=== PATIENT | female | born 1945 | race Caucasian/White ===

== ENCOUNTER → 2017-04-27 | Outpatient (CLI) | payer MEDICARE ==
[~2017-04-27] MED LIST: ACYCLOVIR800 MG PO; ALPH-E400 IU PO; ATIVAN ORAL C2 MG/ML PO; ENALAPRIL10 MG PO; GLYBURIDE5 MG PO; HYDROCODONE BIT1 T11 PO; METFORMIN500 MG PO; VITAMIN D1000 IU PO; ZOCOR40 MG PO
== END | disposition home or self-care (01) ==
LOC: MAMMO 10:51
DX: Z12.31 Encounter for screening mammogram for malignant neoplasm of breast (principal)

== ENCOUNTER → 2017-06-16 | Outpatient (CLI) | payer MEDICARE | END | disposition home or self-care (01) | LOC: RAD 11:58 | DX: M17.0 Bilateral primary osteoarthritis of knee (principal) ==

== ENCOUNTER → 2017-12-24 | Outpatient (CLI) | payer MEDICARE | END | disposition home or self-care (01) | LOC: US 15:20 | DX: M79.604 Pain in right leg (principal); M79.89 Other specified soft tissue disorders ==

== ENCOUNTER → 2019-01-06 | Outpatient (CLI) | payer MEDICARE | END | disposition home or self-care (01) | LOC: RAD 10:41 | DX: Z13.820 Encounter for screening for osteoporosis (principal); Z78.0 Asymptomatic menopausal state ==

== ENCOUNTER → 2019-03-14 | Outpatient (CLI) | payer MEDICARE | END | disposition home or self-care (01) | LOC: RAD 08:23 | DX: R07.81 Pleurodynia (principal); R05 Cough ==

== ENCOUNTER 2019-03-24 14:48 | Emergency (ER) | payer MEDICARE ==
[~2019-03-24] VITALS: Ht 154.9 cm; Wt 84.4 kg
--- NOTE | ~2019-03-24 | EKG ---
[place], [place] ELECTROCARDIOGRAM REPORT NAME: HERIBERTO SMITH UNIT #: [id number] ROOM: DOCTOR: EPIPHANY DRAFT REPORT BIRTHDATE: [birth year] [facility] Test Date: 2019-03-24 Test Time: 15:15:52 Pat Name: HERIBERTO SMITH Department: Room: Gender: F Grill Attendant: : 1945 Requested By: HUNTER JANG Order Number: [id number] Reading MD: Kenna Ortiz Measurements Intervals [place] Rate: 97 P: 67 CA: 133 QRS: 16 QRSD: 89 T: 30 QT: 352 QTc: 447 Interpretive Statements Sinus rhythm Probable left atrial enlargement Baseline wander in lead(s) V3 No previous ECG available for comparison Electronically Signed On 03-27-2019 12:38:42 PDT by Kenna Ortiz CM:EKGRPT:ELECTROCARDIOGRAM REPORT [id number] HUNTER JANG EPIPHANY DRAFT REPORT HUNTER JANG
[2019-03-24 15:30] LABS: BASO % 0.1 % (0.0-1.0); EOS % 0.4 % (1.0-4.0); HEMOGLOBIN 13.4 g/dl (12.0-16.0); LYMPH # 1.4 10*3/uL (1.3-4.4); LYMPH % 16.9 % (27.0-41.0); MEAN CELL VOLUME 90.5 fl (81.0-99.0); MEAN CORPUSCULAR HGB 31.1 pg (27.0-31.0); MEAN CORPUSCULAR HGB CONC 34.4 g/dl (33.0-37.0); MEAN PLATELET VOLUME 9.2 fl (9.6-12.3); MONO # 0.7 10*3/uL (0.1-1.0); MONO % 8.2 % (3.0-9.0); NEUT # 6.1 10*3/uL (2.3-7.9); PLATELET COUNT AUTOMATED 374 10*3/uL (130-400); RED BLOOD COUNT 4.31 10*6/uL (4.10-5.10); RED CELL DISTRI WIDTH 12.6 % (0-14.5); WHITE BLOOD COUNT 8.2 10*3/uL (4.8-10.8)
[2019-03-24 15:47] LABS: ALKALINE PHOSPHATASE 72 U/L (45-117); BUN 7 mg/dl (7-24); CHLORIDE 104 mmol/L (98-107); CREATININE 0.82 mg/dL (0.55-1.02); POTASSIUM 4.3 mmol/L (3.5-5.1); SGOT/AST 25 IU/L (3-35); SGPT/ALT 21 U/L (12-78); SODIUM 138 mmol/L (136-145); TOTAL PROTEIN 7.8 gm/dL (6.4-8.2)
[2019-03-24 15:49] LABS: TROPONIN I < 0.015 ng/ml (<0.045)
[2019-03-24 16:14] LABS: INTERNATIONAL NORM RATIO 0.9 (2.0-3.5)
== END 2019-03-24 17:43 | disposition left against medical advice (07) ==
LOC: ED 14:48
PROVIDERS: Nurse Practitioner Family
DX: S01.81XA Laceration without foreign body of other part of head, initial encounter (principal); R55 Syncope and collapse; Z79.899 Other long term (current) drug therapy; Z79.84 Long term (current) use of oral hypoglycemic drugs; W19.XXXA Unspecified fall, initial encounter; Y93.89 Activity, other specified; Y92.091 Bathroom in other non-institutional residence as the place of occurrence of the external cause; Y99.8 Other external cause status

== ENCOUNTER → 2019-05-30 | Outpatient (CLI) | payer MEDICARE | END | disposition home or self-care (01) | LOC: CARD 10:00 | DX: R42 Dizziness and giddiness (principal); R55 Syncope and collapse ==

== ENCOUNTER → 2019-06-17 | Outpatient (CLI) | payer MEDICARE | END | disposition home or self-care (01) | LOC: US 13:00 | DX: I65.22 Occlusion and stenosis of left carotid artery (principal); E04.1 Nontoxic single thyroid nodule; R55 Syncope and collapse; R42 Dizziness and giddiness; I10 Essential (primary) hypertension; E11.9 Type 2 diabetes mellitus without complications ==

== ENCOUNTER 2019-10-07 17:01 | Inpatient (IN) | payer MEDICARE ==
[~2019-10-07] VITALS: Ht 154.9 cm; Wt 81.0 kg
[2019-10-07 17:24] VITALS: BP 114/74
[2019-10-07 18:10] LABS: BASO % 0.2 % (0.0-1.0); EOS % 0.1 % (1.0-4.0); HEMATOCRIT 44.3 % (37.0-47.0); HEMOGLOBIN 14.9 g/dl (12.0-16.0); LYMPH # 1.1 10*3/uL (1.3-4.4); LYMPH % 10.3 % (27.0-41.0); MEAN CELL VOLUME 88.8 fl (81.0-99.0); MEAN CORPUSCULAR HGB 29.9 pg (27.0-31.0); MEAN CORPUSCULAR HGB CONC 33.6 g/dl (33.0-37.0); NEUT # 8.1 10*3/uL (2.3-7.9); PLATELET COUNT AUTOMATED 388 10*3/uL (130-400); RED BLOOD COUNT 4.99 10*6/uL (4.10-5.10); RED CELL DISTRI WIDTH 12.5 % (0-14.5); WHITE BLOOD COUNT 10.3 10*3/uL (4.8-10.8)
[2019-10-07 18:19] LABS: BILIRUBIN NEGATIVE (NEGATIVE); BLOOD 2+ (NEGATIVE); CLARITY SL CLOUDY (CLEAR); COLOR YELLOW (YELLOW); GLUCOSE NEGATIVE (NEGATIVE); KETONE TRACE (NEGATIVE); LEUKO ESTERASE NEGATIVE (NEGATIVE); NITRITE NEGATIVE (NEGATIVE); PH 5.5 (5.0-9.0); SPECIFIC GRAVITY >= 1.030 (1.005-1.030); UROBILINOGEN 0.2 E.U./dl (0.2-1.0)
[2019-10-07 18:21] VITALS: BP 134/59
[2019-10-07 18:21] LABS: ACT PARTIAL THROMBO TIME 27.9 SECONDS (20.0-32.1); INTERNATIONAL NORM RATIO 0.9 (2.0-3.5)
[2019-10-07 18:26] LABS: BACTERIA 4+; MUCOUS 1+; RBC 0-2 rbc/hpf (0-2); WBC 41-50 wbc/hpf (0-5)
[2019-10-07 18:27] LABS: ALBUMIN 3.6 gm/dl (3.1-4.5); ALKALINE PHOSPHATASE 62 U/L (45-117); BUN 14 mg/dl (7-24); CHLORIDE 99 mmol/L (98-107); CREATININE 1.03 mg/dL (0.55-1.02); POTASSIUM 4.4 mmol/L (3.5-5.1); SGOT/AST 53 IU/L (3-35); SGPT/ALT 26 U/L (12-78); SODIUM 135 mmol/L (136-145); TOTAL PROTEIN 8.1 gm/dL (6.4-8.2)
[2019-10-07 18:28] LABS: TROPONIN I < 0.015 ng/ml (<0.045)
--- NOTE | 2019-10-07 18:28 | NUR ---
ED DOC NOTIFIED OF CRITICAL LAB OF [facility] OF 2.6
[2019-10-07 18:38] LABS: CPK 1085 U/L (26-192)
[2019-10-07 20:00] VITALS: BP 137/78
[2019-10-07 20:16] VITALS: BP 131/68
--- NOTE | 2019-10-07 20:16 | NUR ---
A 74, admitted to 5E, under the services of MARC Resendez DO with a diagnosis of FALL. Chief complaint is FALL. Patient arrived via bed from ER. Monitor applied. Initial assessment completed. Vital signs taken and recorded. DR. STYLES notified of admission to 5E. Orders received. See assessment for past medical history, medications and allergies. Patient and/or family oriented to 5E. visitation policy reviewed. Clothing/patient valuable form completed. RUBIO SMITH RN
[2019-10-07] MEDS ORDERED: ATORVASTATIN CA20 M1 PO (20:39)
[2019-10-07] MEDS ORDERED: VITAMIN D5000 UNI1 PO (20:39)
[2019-10-07] MEDS ORDERED: LISINOPRIL10 M1 PO (20:40)
[2019-10-08] VITALS: BP 141/49
[2019-10-08 06:11] LABS: BASO % 0.2 % (0.0-1.0); EOS # 0.1 10*3/uL (0.0-0.4); EOS % 0.9 % (1.0-4.0); HEMATOCRIT 42.1 % (37.0-47.0); HEMOGLOBIN 14.2 g/dl (12.0-16.0); LYMPH # 1.8 10*3/uL (1.3-4.4); LYMPH % 20.7 % (27.0-41.0); MEAN CELL VOLUME 89.2 fl (81.0-99.0); MEAN CORPUSCULAR HGB 30.1 pg (27.0-31.0); MEAN CORPUSCULAR HGB CONC 33.7 g/dl (33.0-37.0); MONO # 1.1 10*3/uL (0.1-1.0); MONO % 12.9 % (3.0-9.0); NEUT # 5.7 10*3/uL (2.3-7.9); NEUT % 64.7 % (47.0-73.0); PLATELET COUNT AUTOMATED 363 10*3/uL (130-400); RED BLOOD COUNT 4.72 10*6/uL (4.10-5.10); RED CELL DISTRI WIDTH 12.8 % (0-14.5); WHITE BLOOD COUNT 8.8 10*3/uL (4.8-10.8)
[2019-10-08 06:26] LABS: ALKALINE PHOSPHATASE 55 U/L (45-117); BUN 15 mg/dl (7-24); CHLORIDE 105 mmol/L (98-107); CREATININE 0.73 mg/dL (0.55-1.02); PHOSPHOROUS 3.3 mg/dL (2.5-4.9); POTASSIUM 3.9 mmol/L (3.5-5.1); SGOT/AST 40 IU/L (3-35); SGPT/ALT 21 U/L (12-78); SODIUM 138 mmol/L (136-145); TOTAL PROTEIN 7.1 gm/dL (6.4-8.2)
[2019-10-08 06:27] LABS: FREE T4 1.37 ng/dl (0.76-1.46)
[2019-10-08 06:32] LABS: CPK 589 U/L (26-192)
[2019-10-08 07:41] LABS: VITAMIN D, 25-HYDROXY 25.6 ng/mL (30-100)
[2019-10-08 08:00] VITALS: BP 137/53
[2019-10-08 12:00] VITALS: BP 142/58
[2019-10-08 16:00] VITALS: BP 140/52
--- NOTE | 2019-10-08 18:33 | NUR ---
CURRENTLY AWAITING FAMILY TO GET IN FROM [place] TO TRANSPORT PATIENT. FAMILY MAY NOT GET HERE UNTIL TOMORROW. DR GUILLEN AND BLOCK SAWYER AWARE.
[2019-10-08 20:00] VITALS: BP 122/42
--- NOTE | 2019-10-08 20:35 | NUR ---
DR HACKETT IN TO SEE PT
[2019-10-09] VITALS: BP 131/54
[2019-10-09 08:00] VITALS: BP 130/50
--- NOTE | 2019-10-09 10:07 | NUR ---
Discharge instructions reviewed with patient/family. Patient receptive and verbalizes understanding. Follow-up care arranged. Written instructions given to patient/family. IV REMOVED. CARLOS LYNCH
== END 2019-10-09 10:06 | disposition home or self-care (01) | DRG 558 ==
LOC: ED 17:01 → EDHOLD 18:59 → 5E 19:40
PROVIDERS: Emergency Medicine; Internal Medicine; ADMIT Emergency Medicine
DX: M62.82 Rhabdomyolysis (principal); N30.01 Acute cystitis with hematuria; E87.2 Acidosis; E87.1 Hypo-osmolality and hyponatremia; R26.2 Difficulty in walking, not elsewhere classified; R00.0 Tachycardia, unspecified; E11.65 Type 2 diabetes mellitus with hyperglycemia; I10 Essential (primary) hypertension; E78.5 Hyperlipidemia, unspecified; G89.29 Other chronic pain; M54.9 Dorsalgia, unspecified; R74.0 Nonspecific elevation of levels of transaminase and lactic acid dehydrogenase [LDH]; E83.41 Hypermagnesemia; Z96.1 Presence of intraocular lens; E86.0 Dehydration; W18.30XA Fall on same level, unspecified, initial encounter; Y93.89 Activity, other specified; Y92.091 Bathroom in other non-institutional residence as the place of occurrence of the external cause; Y99.8 Other external cause status; Z98.49 Cataract extraction status, unspecified eye; Z79.899 Other long term (current) drug therapy

== ENCOUNTER 2019-10-10 16:17 | Inpatient (IN) | payer MEDICARE ==
[~2019-10-10] VITALS: Ht 154.9 cm; Wt 78.7 kg
[~2019-10-10 16:17] MED LIST changes: +ATORVASTATIN CA20 M1 PO; +LISINOPRIL10 M1 PO; +VITAMIN D5000 UNI1 PO
[2019-10-10 16:22] VITALS: BP 149/57
[2019-10-10 16:42] LABS: BASO % 0.2 % (0.0-1.0); EOS # 0.2 10*3/uL (0.0-0.4); EOS % 2.6 % (1.0-4.0); HEMATOCRIT 41.8 % (37.0-47.0); HEMOGLOBIN 13.9 g/dl (12.0-16.0); LYMPH # 1.5 10*3/uL (1.3-4.4); LYMPH % 18.7 % (27.0-41.0); MEAN CELL VOLUME 89.1 fl (81.0-99.0); MEAN CORPUSCULAR HGB 29.6 pg (27.0-31.0); MEAN CORPUSCULAR HGB CONC 33.3 g/dl (33.0-37.0); MONO # 0.7 10*3/uL (0.1-1.0); NEUT # 5.7 10*3/uL (2.3-7.9); NEUT % 69.6 % (47.0-73.0); PLATELET COUNT AUTOMATED 426 10*3/uL (130-400); RED BLOOD COUNT 4.69 10*6/uL (4.10-5.10); RED CELL DISTRI WIDTH 12.5 % (0-14.5); WHITE BLOOD COUNT 8.1 10*3/uL (4.8-10.8)
[2019-10-10 17:00] LABS: ALBUMIN 3.8 gm/dl (3.1-4.5); ALKALINE PHOSPHATASE 63 U/L (45-117); BUN 15 mg/dl (7-24); CHLORIDE 105 mmol/L (98-107); POTASSIUM 3.9 mmol/L (3.5-5.1); SGOT/AST 45 IU/L (3-35); SGPT/ALT 30 U/L (12-78); SODIUM 137 mmol/L (136-145); TOTAL PROTEIN 8.2 gm/dL (6.4-8.2)
[2019-10-10 19:01] VITALS: BP 150/60
[2019-10-10 19:06] VITALS: BP 150/60
[2019-10-10 19:50] VITALS: BP 123/50
--- NOTE | 2019-10-10 19:50 | NUR ---
Time: 1950 A 74 year old FEMALE admitted to 5E under services of KAREN COWART DO. Pt. arrived via bed from ER. Chief complaint: AMOKE INHALATION. PATRICIA ERNANDEZ
[2019-10-10 20:00] VITALS: BP 123/50
--- NOTE | 2019-10-10 21:34 | NUR ---
CALLED DR STYLES TO INFORM HER THAT THE PATIENT IS BECOMING AGGITATED AND MAKING MULTIPLE ATTEMPTS TO LEAVE. ORDERS RECIEVED.
--- NOTE | 2019-10-11 01:02 | NUR ---
PT ASLEEP IN BED AT THIS TIME. NO S/S OF DISTRESS NOTED. BED LOW, ALARM ON.
[2019-10-11 06:31] LABS: BASO % 0.6 % (0.0-1.0); EOS # 0.3 10*3/uL (0.0-0.4); HEMATOCRIT 36.1 % (37.0-47.0); LYMPH # 1.9 10*3/uL (1.3-4.4); LYMPH % 34.8 % (27.0-41.0); MEAN CELL VOLUME 88.7 fl (81.0-99.0); MEAN CORPUSCULAR HGB 29.5 pg (27.0-31.0); MEAN CORPUSCULAR HGB CONC 33.2 g/dl (33.0-37.0); MEAN PLATELET VOLUME 8.9 fl (9.6-12.3); MONO # 0.7 10*3/uL (0.1-1.0); NEUT # 2.4 10*3/uL (2.3-7.9); NEUT % 44.5 % (47.0-73.0); PLATELET COUNT AUTOMATED 368 10*3/uL (130-400); RED BLOOD COUNT 4.07 10*6/uL (4.10-5.10); RED CELL DISTRI WIDTH 12.5 % (0-14.5); WHITE BLOOD COUNT 5.3 10*3/uL (4.8-10.8)
[2019-10-11 06:47] LABS: BUN 12 mg/dl (7-24); CHLORIDE 106 mmol/L (98-107); CREATININE 0.68 mg/dL (0.55-1.02); PHOSPHOROUS 3.8 mg/dL (2.5-4.9); SODIUM 138 mmol/L (136-145)
[2019-10-11 08:00] VITALS: BP 146/80
--- NOTE | 2019-10-11 08:03 | NUR ---
PHYSICAL THERAPY Screen received as well as orders for PT will follow, thank you Connie Small PT
--- NOTE | 2019-10-11 08:17 | NUR ---
PT SETS BED ALARM OFF, CLOTHED IN STREET CLOTHES AND PUTTING TENNIS SHOES ON IN ORDER TO USE BATHROOM. PT ENCOURAGED TO PUT HOSPITAL GOWN ON. ASSESSMENT COMPLETE AT THIS TIME. PT ALERT AND COOPERATIVE. RESPIRATIONS EASY AND UNLABORED ON ROOM AIR. WILL ASSIST PT BACK TO BED AND ENCOURAGE HOSPITAL GOWN.
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
--- NOTE | 2019-10-11 12:35 | NUR ---
Occupational Therapy evaluation completed on 5 with full eval to follow. Precautions include unsteady in standing at times, impaired cognition;memory,insight,judgement,low complexity level 59138, left knee pain, low back pain. Recommend OT per POC and home w/ 24 hr supervision and assist w/ medications and IADLs. Thank you. Amy Pierce OTR/L
--- NOTE | 2019-10-11 14:30 | NUR ---
PT SONS LEAVE AND PT BECOMES AGITATED AND ATTEMPTS TO FOLLOW SONS DOWN [place] AND ATTEMPTS TO LEAVE HOSPITAL. PT HAS STREET CLOTHES AND REFUSES TO PUT HOSPITAL GOWN ON AT THIS TIME. PT WALKS DOWN TO WAITING AREA AND ATTEMPTS TO PRESS BUTTONS TO OBTAIN ACCESSS TO ELEVATOR. THIS NURSE, NURSING DIGITAL MARKETING PROJECT MANAGER, AND PATIENT ATTENDANT ARE WITH PATIENT AT THIS TIME. SECURITY IS CALLED. PT IS ASSISTED BACK TO ROOM. PT IS ASSISTED INTO A HOSPITAL GOWN. BROWN BAND IS PLACED. PT STATES THAT SHE UNDERSTANDS WHY SHE HAS TO STAY HERE. PT TO BE MOVED CLOSER TO DESK WHEN ROOM IS CLEAN. WILL CONTINUE TO MONITOR. CALL LIGHT IN REACH OF PATIENT.
--- NOTE | 2019-10-11 14:44 | NUR ---
CONSULT CALLED TO THE JUSTA LIMA. STATES THAT SHE WILL SEE PATIENT ON THURSDAY. DR ANGUIANO MADE AWARE OF THIS.
--- NOTE | 2019-10-11 15:38 | NUR ---
PHYSICAL THERAPY Eval completed pt moderate complexity level recomend home with 24 hour care and f/u HH though pt has refused in the past. Pt refusing any placement and will likley not qualify for skilled therapy, spoke with CM at length and pt has U consult as well as competancy evalation ordered. Full report to follow PT to work on amb with cane, stair training, balance/safety. Connie Small PT
[2019-10-11 16:00] VITALS: BP 152/63
--- NOTE | 2019-10-11 16:00 | NUR ---
PT MOVED TO ROOM 523. PT AGREEABLE WITH STAFF AT THIS TIME. NO S/S OF DISTRESS NOTED. WILL CONTINUE TO MONITOR. PT WITHIN EYESIGHT AT THIS TIME.
--- NOTE | 2019-10-11 16:04 | NUR ---
Nursing screen received and occupational therapy referral received. Thank you. Amy Pierce OTR/L
--- NOTE | 2019-10-11 18:18 | NUR ---
PT SITTING IN ROOM, LOOKING OUT WINDOW. NO S/S OF DISTRESS. WILL MONITOR.
[2019-10-11 20:00] VITALS: BP 151/72
--- NOTE | 2019-10-11 21:01 | NUR ---
PATIENT AMBULATING IN HALLWAY WITH GOWN AND BROWN BAND OFF. PATIENT ESCORTED BACK TO ROOM AND BAND AND GOWN PUT BUT ON. PATIENT IN BED WITH BED ALARM ON. BED IN LOWEST POSITON, CALL VAHET IN REACH
[2019-10-12] VITALS: BP 102/88
--- NOTE | 2019-10-12 01:28 | NUR ---
24 HR chart check completed.
[2019-10-12 08:00] VITALS: BP 154/78
[2019-10-12 12:00] VITALS: BP 146/76
--- NOTE | 2019-10-12 12:54 | NUR ---
FAMILY IN PATIENTS ROOM AND STATES THAT THE PATIENT WANTS TO LEAVE NOW. I WENT IN TO INFORM THE FAMILY THAT THE DOCTOR WHO IS SUPPOSED TO SEE HER IS OUT TODAY DUE TO THE HOLIDAY AND WILL BE IN TOMORROW TO SEE THE PATIENT. PATIENT STATES "OK" AND THAT SHE WILL ORDER LUNCH AT THIS TIME.
--- NOTE | 2019-10-12 13:05 | NUR ---
PT ATTEMPTED TO LEAVE THE FLOOR. PT IS BROUGHT BACK INTO THE ROOM AND MADE COMFORTABLE. CURRENTLY WAITING FOR HER LUNCH. WILL CONTINUE TO MONITOR
--- NOTE | 2019-10-12 15:42 | NUR ---
PHYSICAL THERAPY Patient standing up in room with nurse present at time of arrival. Nurse informing SEPARATIONS SCIENTIST that patient attempted to leave unit earlier in day. Patient identified by name and . Patient provided consent for therapy session this date. Pt performed standing/seated B LE ther-ex, for strength, endurance and balance; standing marches, heel raises x 10 reps (AVIATION TECHNICAL SYSTEMS SPECIALIST provided for balance and safety) Seated: LAQs, hip ABD/ADD (OK[place]), marches x 15 reps. Cues and supervision for technique and progression of exercises. STS transfer x 10 reps from EOB without UE use completed in order to improve overall strength and balance to decrease fall risk. Pt ambulated without AD, HHAx1, over level surfaces-- incorporating 90 and 180 degree directional changes for ~150'x2. Patient demo no LOB this date, although benefits from cues for safety and increasing LE step height/length to decrease fall risk. Patient in room sitting EOB at session end with call light within reach. No voiced concerns. SEPARATIONS SCIENTIST informed nursing that patient was left in room unattended post therapy session. Mer Gurrola PTA.
[2019-10-12 16:00] VITALS: BP 140/82
--- NOTE | 2019-10-12 17:06 | NUR ---
Shift chart check completed.
--- NOTE | 2019-10-12 17:15 | NUR ---
PT SON JOSIE CALLED JUST TO GET INFORMATION ON HOW HIS MOTHER IS DOING, STATES HE WILL CALL BACK IN TOMORROW
--- NOTE | 2019-10-12 19:54 | NUR ---
PT IN BED RESTING AT THIS TIME. NO COMPLAINTS VOICED. RESPS ARE EASY AND NONLABORED. BEDSIDE GLUCOSE IS CHECKED FOR A RESULT OF 120. BED IS LOW WITH BED ALARM ON. WILL MONITOR FOR EFFECTIVNESS.
[2019-10-12 20:00] VITALS: BP 145/74
[2019-10-13] VITALS: BP 118/55
--- NOTE | 2019-10-13 01:13 | NUR ---
24 HR chart check completed.
--- NOTE | 2019-10-13 04:00 | NUR ---
PT TAKES OFF HER OWN BODY ALARM WHEN IN CHAIR AND WILL NOT STAY IN BED. HER GAIT IS STEADY AT THIS TIME.
[2019-10-13 06:40] LABS: BASO % 0.4 % (0.0-1.0); EOS # 0.3 10*3/uL (0.0-0.4); HEMATOCRIT 36.1 % (37.0-47.0); HEMOGLOBIN 12.3 g/dl (12.0-16.0); LYMPH # 1.6 10*3/uL (1.3-4.4); MEAN CORPUSCULAR HGB 29.6 pg (27.0-31.0); MEAN CORPUSCULAR HGB CONC 34.1 g/dl (33.0-37.0); MEAN PLATELET VOLUME 8.5 fl (9.6-12.3); MONO # 0.6 10*3/uL (0.1-1.0); MONO % 11.7 % (3.0-9.0); NEUT # 2.2 10*3/uL (2.3-7.9); NEUT % 47.6 % (47.0-73.0); PLATELET COUNT AUTOMATED 378 10*3/uL (130-400); RED BLOOD COUNT 4.15 10*6/uL (4.10-5.10); RED CELL DISTRI WIDTH 12.1 % (0-14.5); WHITE BLOOD COUNT 4.7 10*3/uL (4.8-10.8)
[2019-10-13 07:03] LABS: BUN 6 mg/dl (7-24); CHLORIDE 105 mmol/L (98-107); POTASSIUM 3.9 mmol/L (3.5-5.1); SODIUM 138 mmol/L (136-145)
--- NOTE | 2019-10-13 07:44 | NUR ---
Shift chart check completed.
--- NOTE | 2019-10-13 07:58 | NUR ---
pt sitting side of bed, dressed, putting on tennis shoes. reminded patient that she is not discharged and to not leave. she states "i know, i just want to have my things gathered up". pt steady on feet, bed alarm off at this time while patient sitting at side of bed putting shoes on. will continue to monitor. staff at nursing station aware patient is wearing purple shirt and to assist patient back to room if she wanders into lockwood. will continue to monitor patient for needs, place bed alarm on if needed.
[2019-10-13 08:00] VITALS: BP 146/82
--- NOTE | 2019-10-13 08:30 | NUR ---
BETH received email from patients son Jaime Bar that included patiets DPOA-HC. ELECTRICAL INSPECTOR printed the documents and placed them on the patients chart. -BETH Pierce
--- NOTE | 2019-10-13 08:33 | NUR ---
Pt was treated x 23 minutes with OT beginning with fxl mobility throughout bedroom & bathroom areas with supervision due to hx of balance issues. Pt transferred into & out of shower with supervision. Pt stood at sink for grooming after set up for approx 5 minutes. Ended session with retrieving items from low drawer with supervision. Call light within reach. Continue with OT POC. Kasandra REN
--- NOTE | 2019-10-13 10:31 | NUR ---
PHYSICAL THERAPY TREATMENT TIME: 10:00 AM - 10:21 AM 21 MINUTES TOTAL Patient presented to therapy in sitting in bedside chair with patient's brother visiting with her in the room. Patient has chair alarm on chair, but it is NOT attached to patient. Patient gives informed consent for treatment. Patient sit to stand out of bedside chair with SBA. Patient performed ambulation with no assistive device and CGA X 1 for 120' x 1 to stairwell. Patient ascended and descended x 12 steps with CGA X 1 WITH NO significant difficulty. Patient used hand rail on one side of steps both ascending and descending the steps / CGA X 1 on other side. Patient ambulated back to the room another 120' x 1 with CGA X 1 and no LOB or other difficulty. Patient does demonstrate some increased confusion. Patient was left in bedside chair with call light within reach, chair alarm tested and attached to patient and brother visitng with patient in the room. Patient was 1:1 with this DYE MAKER for 21 minutes total. DONOVAN NELSON DYE MAKER
--- NOTE | 2019-10-13 11:25 | NUR ---
CAFE AIDE spoke to Dr. Colón about the patient. CAFE AIDE reached out [facility], a cab would cost the patient $6.45. CAFE AIDE went to speak with the patient about transportation home. Patients brother is at bedside and stated he would take her home. CAFE AIDE spoke with ABDIRAHMAN Tuttle about patients brother transporting her home. -BETH Pierce
--- NOTE | 2019-10-13 11:32 | NUR ---
BETH received call from patients other son, David Bar [phone]. BETH provided him with the contact number for [facility]. BETH explained with patient not being home bound HHC would not be appropriate at this time. He understood. -BETH Pierce
--- NOTE | 2019-10-13 11:56 | NUR ---
IV REMOVED, DRESSING APPLIED.
--- NOTE | 2019-10-13 12:03 | NUR ---
Discharge instructions reviewed with patient/family. Patient receptive and verbalizes understanding. Follow-up care arranged. Written instructions given to patient/family. PT STATES UNDERSTANDING OF DISCHARGE INSTRUCTIONS, UNDERSTANDS NO CHANGE IN HOME MEDICATIONS AND UNDERSTANDS TO KEEP APPOITMENT WITH PRIMARY CARE PHYSICIAN. SPOKE TO DR. GUILLEN PRIOR TO DISCHARGING PATIENT AND HE STATED THAT MITESH LIMA SAW PATIENT AND BELIEVES PATIENT TO BE COMPETENT TO MAKE OWN DECISIONS AND PATIENT CAN BE DISCHARGED HOME. PATIENTS BROTHER AT BEDSIDE AND WILL TAKE PATIENT HOME, DISCHARGE VIA WHEELCHAIR. SHAUNNA CAGLE
--- NOTE | 2019-10-13 16:54 | NUR ---
OCCUPATIONAL THERAPY CO-SIGN I approve of the Occupational Therapy notes written above. GABRIELA FLOYD OTR/Daquan
--- NOTE | 2019-10-13 18:16 | NUR ---
PATIENTS SON CALLED IN AFTER PATIENT WAS DISCHARGED WITH CONCERNS WITH PATIENT GOING HOME ALONE. RESOURSE INFORMATION WAS GIVEN TO PATIENTS BROTHER WHO SON JOSIE SAID IS VERY FORGETFUL, CALLED CARE MANAGEMENT AND LEFT MESSAGE REQUESTING TO CALL PEDRO GALINDO TOMORROW WITH RESOURCE INFORMATION.
--- NOTE | 2019-10-14 08:00 | NUR ---
PHYSICAL THERAPY CO-SIGN I approve of the Physical Therapy notes written above. Connie Small PT
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
--- NOTE | 2019-10-14 15:08 | NUR ---
BETH reached out to the patient. No answer. Message was already left today. -BETH Pierce
== END 2019-10-13 12:03 | disposition home or self-care (01) | DRG 206 ==
LOC: ED 16:17 → 5E 17:53 → EDHOLD 17:53 → 5E 18:20
PROVIDERS: Emergency Medicine; Internal Medicine; Student in an Organized Health Care Education/Training Program; ADMIT Internal Medicine
DX: J70.5 Respiratory conditions due to smoke inhalation (principal); R68.89 Other general symptoms and signs; I10 Essential (primary) hypertension; Z66 Do not resuscitate; Z51.5 Encounter for palliative care; E78.5 Hyperlipidemia, unspecified; M54.9 Dorsalgia, unspecified; G89.29 Other chronic pain; E55.9 Vitamin D deficiency, unspecified; D72.819 Decreased white blood cell count, unspecified; R41.9 Unspecified symptoms and signs involving cognitive functions and awareness; E11.9 Type 2 diabetes mellitus without complications; Z96.1 Presence of intraocular lens; Z79.899 Other long term (current) drug therapy; Z98.49 Cataract extraction status, unspecified eye

== ENCOUNTER 2020-01-03 12:01 | Inpatient (IN) | payer OTHER ==
[~2020-01-03] VITALS: Ht 165.1 cm; Wt 74.9 kg
[2020-01-03 12:02] VITALS: BP 129/56
[2020-01-03 12:43] LABS: BASO % 0.2 % (0.0-1.0); EOS # 0.1 10*3/uL (0.0-0.4); EOS % 0.3 % (1.0-4.0); HEMATOCRIT 47.9 % (37.0-47.0); HEMOGLOBIN 15.8 g/dl (12.0-16.0); LYMPH # 0.7 10*3/uL (1.3-4.4); LYMPH % 4.1 % (27.0-41.0); MEAN CELL VOLUME 87.2 fl (81.0-99.0); MEAN CORPUSCULAR HGB 28.8 pg (27.0-31.0); MEAN PLATELET VOLUME 8.9 fl (9.6-12.3); MONO # 1.1 10*3/uL (0.1-1.0); NEUT # 14.2 10*3/uL (2.3-7.9); NEUT % 87.8 % (47.0-73.0); PLATELET COUNT AUTOMATED 493 10*3/uL (130-400); RED BLOOD COUNT 5.49 10*6/uL (4.10-5.10); RED CELL DISTRI WIDTH 12.5 % (0-14.5); WHITE BLOOD COUNT 16.2 10*3/uL (4.8-10.8)
[2020-01-03 12:52] LABS: ACT PARTIAL THROMBO TIME 23.7 SECONDS (20.0-32.1)
[2020-01-03 13:00] LABS: ALBUMIN 3.6 gm/dl (3.1-4.5); ALKALINE PHOSPHATASE 69 U/L (45-117); BUN 31 mg/dl (7-24); CHLORIDE 101 mmol/L (98-107); CREATININE 1.34 mg/dL (0.55-1.02); LIPASE 340 U/L (73-393); POTASSIUM 4.1 mmol/L (3.5-5.1); SGOT/AST 50 IU/L (3-35); SGPT/ALT 25 U/L (12-78); SODIUM 135 mmol/L (136-145); TOTAL PROTEIN 8.5 gm/dL (6.4-8.2)
[2020-01-03 13:01] LABS: TROPONIN I < 0.015 ng/ml (<0.045)
[2020-01-03 13:01] LABS: BILIRUBIN 1+ (NEGATIVE); BLOOD NEGATIVE (NEGATIVE); CLARITY SL CLOUDY (CLEAR); COLOR YELLOW (YELLOW); GLUCOSE NEGATIVE (NEGATIVE); KETONE 2+ (NEGATIVE); LEUKO ESTERASE NEGATIVE (NEGATIVE); NITRITE NEGATIVE (NEGATIVE); UROBILINOGEN 0.2 E.U./dl (0.2-1.0)
[2020-01-03 13:09] LABS: BACTERIA TRACE; WBC 0-2 wbc/hpf (0-5)
[2020-01-03 14:44] VITALS: BP 107/56; BP 107/57; BP 110/64; BP 111/60; BP 112/30; BP 117/62; BP 118/61; BP 121/58; BP 124/51; BP 126/59; BP 98/47
[2020-01-03 16:31] VITALS: BP 115/65
[2020-01-03 20:00] VITALS: BP 104/54
[2020-01-04] VITALS: BP 119/45
[2020-01-04 06:36] LABS: BASO % 0.3 % (0.0-1.0); EOS # 0.3 10*3/uL (0.0-0.4); HEMATOCRIT 39.2 % (37.0-47.0); HEMOGLOBIN 13.2 g/dl (12.0-16.0); LYMPH # 1.8 10*3/uL (1.3-4.4); LYMPH % 18.8 % (27.0-41.0); MEAN CELL VOLUME 89.1 fl (81.0-99.0); MEAN CORPUSCULAR HGB CONC 33.7 g/dl (33.0-37.0); MEAN PLATELET VOLUME 9.1 fl (9.6-12.3); MONO # 1.2 10*3/uL (0.1-1.0); NEUT # 6.4 10*3/uL (2.3-7.9); NEUT % 65.5 % (47.0-73.0); PLATELET COUNT AUTOMATED 360 10*3/uL (130-400); WHITE BLOOD COUNT 9.7 10*3/uL (4.8-10.8)
[2020-01-04 06:52] LABS: ALKALINE PHOSPHATASE 58 U/L (45-117); BUN 39 mg/dl (7-24); CHLORIDE 108 mmol/L (98-107); CHOLESTEROL 263 mg/dL (<200); CREATININE 0.95 mg/dL (0.55-1.02); FREE T4 1.47 ng/dl (0.76-1.46); HDL CHOLESTEROL 45 mg/dl (40-60); LDH 200 U/L (84-246); LDL CHOLESTEROL 178 mg/dL (9-159); PHOSPHOROUS 3.5 mg/dL (2.5-4.9); POTASSIUM 3.8 mmol/L (3.5-5.1); SGOT/AST 50 IU/L (3-35); SGPT/ALT 25 U/L (12-78); SODIUM 139 mmol/L (136-145); TRIGLYCERIDES 202 mg/dl (<150); VLDL CHOLESTEROL 40 mg/dL (6-40)
[2020-01-04 08:00] VITALS: BP 130/70
[2020-01-04 08:12] LABS: VITAMIN D, 25-HYDROXY 25.8 ng/mL (30-100)
[2020-01-04 12:00] VITALS: BP 127/68
[2020-01-04 14:10] LABS: BILIRUBIN NEGATIVE (NEGATIVE); BLOOD NEGATIVE (NEGATIVE); CLARITY CLEAR (CLEAR); COLOR YELLOW (YELLOW); GLUCOSE NEGATIVE (NEGATIVE); KETONE NEGATIVE (NEGATIVE); NITRITE NEGATIVE (NEGATIVE); UROBILINOGEN 0.2 E.U./dl (0.2-1.0)
[2020-01-04 14:12] LABS: LEUKO ESTERASE NEGATIVE (NEGATIVE)
[2020-01-04 14:19] LABS: BACTERIA TRACE; RBC 0-2 rbc/hpf (0-2)
[2020-01-04 16:00] VITALS: BP 128/50
[2020-01-04 20:00] VITALS: BP 137/57
[2020-01-05] VITALS: BP 136/65
[2020-01-05 08:00] VITALS: BP 134/54
[2020-01-05 12:00] VITALS: BP 141/68
[2020-01-05 16:00] VITALS: BP 146/53
[2020-01-05 20:00] VITALS: BP 139/66
[2020-01-06] VITALS: BP 134/82
[2020-01-06 07:00] LABS: CHLORIDE 108 mmol/L (98-107); POTASSIUM 3.7 mmol/L (3.5-5.1); SODIUM 140 mmol/L (136-145)
[2020-01-06 07:03] LABS: BUN 9 mg/dl (7-24)
[2020-01-06 08:00] VITALS: BP 110/48
== END 2020-01-06 12:45 | disposition other institution (70) | DRG 871 ==
LOC: ED 12:01 → 4E 13:49 → EDHOLD 13:49 → 4E 14:13
PROVIDERS: Family Medicine; Internal Medicine; Registered Nurse; ADMIT Internal Medicine
DX: A41.9 Sepsis, unspecified organism (principal); G93.41 Metabolic encephalopathy; N17.0 Acute kidney failure with tubular necrosis; N39.0 Urinary tract infection, site not specified; E87.2 Acidosis; E44.1 Mild protein-calorie malnutrition; E86.0 Dehydration; T79.6XXA Traumatic ischemia of muscle, initial encounter; X58.XXXA Exposure to other specified factors, initial encounter; M25.562 Pain in left knee; M25.552 Pain in left hip; I10 Essential (primary) hypertension; E78.2 Mixed hyperlipidemia; E11.65 Type 2 diabetes mellitus with hyperglycemia; R74.0 Nonspecific elevation of levels of transaminase and lactic acid dehydrogenase [LDH]; E87.8 Other disorders of electrolyte and fluid balance, not elsewhere classified; E83.41 Hypermagnesemia; E53.8 Deficiency of other specified B group vitamins; G89.29 Other chronic pain; M54.9 Dorsalgia, unspecified; Z96.1 Presence of intraocular lens; Z66 Do not resuscitate; Z51.5 Encounter for palliative care; E78.5 Hyperlipidemia, unspecified; F32.9 Major depressive disorder, single episode, unspecified; G31.84 Mild cognitive impairment of uncertain or unknown etiology; G30.9 Alzheimer's disease, unspecified; Z79.899 Other long term (current) drug therapy; Z79.84 Long term (current) use of oral hypoglycemic drugs; Z98.49 Cataract extraction status, unspecified eye

== ENCOUNTER 2020-01-30 11:09 | Inpatient (IN) | payer OTHER ==
[~2020-01-30] VITALS: Ht 154.9 cm; Wt 74.0 kg
[2020-01-30 11:16] VITALS: BP 129/44
[2020-01-30 12:05] LABS: BASO % 0.1 % (0.0-1.0); EOS % 0.5 % (1.0-4.0); LYMPH # 1.1 10*3/uL (1.3-4.4); LYMPH % 12.8 % (27.0-41.0); MEAN CELL VOLUME 86.3 fl (81.0-99.0); MEAN CORPUSCULAR HGB 29.2 pg (27.0-31.0); MEAN CORPUSCULAR HGB CONC 33.8 g/dl (33.0-37.0); MEAN PLATELET VOLUME 8.9 fl (9.6-12.3); MONO # 0.9 10*3/uL (0.1-1.0); MONO % 10.2 % (3.0-9.0); NEUT # 6.4 10*3/uL (2.3-7.9); NEUT % 76.2 % (47.0-73.0); PLATELET COUNT AUTOMATED 409 10*3/uL (130-400); RED BLOOD COUNT 4.52 10*6/uL (4.10-5.10); RED CELL DISTRI WIDTH 12.8 % (0-14.5); WHITE BLOOD COUNT 8.4 10*3/uL (4.8-10.8)
--- NOTE | 2020-01-30 12:06 | NUR ---
Pt to radiology at this time via bed.
[2020-01-30 12:08] LABS: BILIRUBIN NEGATIVE (NEGATIVE); BLOOD NEGATIVE (NEGATIVE); CLARITY CLOUDY (CLEAR); COLOR YELLOW (YELLOW); GLUCOSE NEGATIVE (NEGATIVE); KETONE TRACE (NEGATIVE); UROBILINOGEN 0.2 E.U./dl (0.2-1.0)
[2020-01-30 12:09] LABS: LEUKO ESTERASE NEGATIVE (NEGATIVE); NITRITE NEGATIVE (NEGATIVE)
--- NOTE | 2020-01-30 12:17 | NUR ---
CHECKERING MACHINE OPERATOR received call from Candelaria Montiel to see if the patient was admitted to this facility. CHECKERING MACHINE OPERATOR explained to Candelaria that patient is currently being seen in the ED. Patient was just released from [facility] on 01/20/2020. Per Candelaria, patient told her that she "falls because she passes out". CHECKERING MACHINE OPERATOR to follow in case patient is admitted.
[2020-01-30 12:18] LABS: BACTERIA 2+
[2020-01-30 12:19] LABS: ALBUMIN 3.2 gm/dl (3.1-4.5); ALKALINE PHOSPHATASE 98 U/L (45-117); BUN 8 mg/dl (7-24); CHLORIDE 102 mmol/L (98-107); CREATININE 0.67 mg/dL (0.55-1.02); POTASSIUM 4.3 mmol/L (3.5-5.1); SGOT/AST 61 IU/L (3-35); SGPT/ALT 21 U/L (12-78); SODIUM 133 mmol/L (136-145); TOTAL PROTEIN 7.1 gm/dL (6.4-8.2)
[2020-01-30 12:19] LABS: FINE GRANULAR CAST 30-40
--- NOTE | 2020-01-30 12:22 | NUR ---
Pt returned from radiology at this time.
--- NOTE | 2020-01-30 13:25 | NUR ---
Pt resting quietly in bed, no distress noted.
--- NOTE | 2020-01-30 16:00 | NUR ---
Call placed to radiology group about Pt hip xrays.
[2020-01-30 17:30] VITALS: BP 132/61
--- NOTE | 2020-01-30 17:30 | NUR ---
Time: 1729 A 74 year old FEMALE admitted to 4E under services of ALFRED MOSS DO. Pt. arrived via stretcher from ER. Chief complaint: MULTIPLE FALLS, CONFUSSION, PATIENT IS ALERT AMD ORIENTED TO PERSON AND PLACE, DENIES FALLING, SHE HAS BRUISING ABOVE RIGHT EYE, AND BOT KNEES WELL LEFT FLANK, WHEM TRYING TO AMBULATE PATIENT TFROM CART SHE WAS NOT ABLE TO AMBULATE.. RICH ROBLES
[2020-01-30] MEDS ORDERED: RIVASTIGMINE T1.5 M1 PO (18:56)
[2020-01-30 20:00] VITALS: BP 160/80
--- NOTE | 2020-01-30 20:00 | NUR ---
ASSUMED CARE FOR THIS PT AT THIS TIME. PT AWAKE IN BED. PT DOES NOT ANSWER QUESTIONS APPROPRIATELY. WORD SALAD NOTED. PT COOPERATIVE W/CARE. BED ALARM ON W/WHEELS LOCKED AND CALL LIGHT IN REACH.
[2020-01-31] VITALS: BP 138/60; BP 98/52
--- NOTE | 2020-01-31 02:43 | NUR ---
HERIBERTO SMITH [id number] Please refer to the physician's history and physical for past medical history, comorbid conditions, and allergies. Diagnosis: FREQUENT FALLS GENERAL WEAKNESS UNABLE TO Daniel Score: 18,AT RISK WOUND DESCRIPTIONS: Wound Number: 1 Location of the wound: Left 2nd toe Thickness: Partial Size: 0..3cm x 0.4cm x 0.1cm Tunneling: none Undermining: none Sinus Tract: none Presence of Exudate: none Amount: None Color: Red Odor: None Periwound Skin Appearance: Normal Wound edges: approximated Pain (associated with wound): none at time of assessment How does patient state this happened? pt unsure how this happened Wound Number: 2 Location of the wound: top of left foot Thickness: Partial Size: 0.4cm x 0.4cm x 0.1cm Tunneling: none Undermining: none Sinus Tract: none Presence of Exudate: none Amount: None Color: Red Odor: None Periwound Skin Appearance: Normal Wound edges: approximated Pain (associated with wound): none at time of assessment How does patient state this happened? pt unable to state how this how this happened Wound Number: 3 Location of the wound: left outer knee Thickness: Partial Size: 0.6cm x 1.0cm x 0.1cm Tunneling: none Undermining: none Sinus Tract: none Presence of Exudate: none Amount: None Color: Red Odor: None Periwound Skin Appearance: Scar Wound edges: approximated Pain (associated with wound): none at time of assessment How does patient state this happened? pt unable to state how this happened Wound Number: 4 Location of the wound: below left knee Thickness: Partial Size: 0.2cm x 0.1cm x 0.1cm Tunneling: none Undermining: none Sinus Tract: none Presence of Exudate: none Amount: None Color: Red Odor: None Periwound Skin Appearance: Scar Wound edges: approximated Pain (associated with wound): none at time of assesment How does patient state this happened? pt unable to state how this happened Wound Number: 5 Left elbow is red and blanchable at time of assessment. No open areas noted at time of assessment. No drainage noted at time of assessment. Wound Number: 6 Location of the wound: left base of great toe distal Type of wound: callus Size: 3.0cm x 1.2cm x <0.1cm Tunneling: none Undermining: none Sinus Tract: none Presence of Exudate: none Amount: None Color: Woodard Odor: None Periwound Skin Appearance: Normal Wound edges: approximated Pain (associated with wound): none at time of assessment How does patient state this happened? pt unable to state how this happened Wound Number: 7 Location of the wound: left base of great toe proximal Type of wound: DTI Size: 0.3cm x 0.3cm x <0.1cm Tunneling: none Undermining: none Sinus Tract: none Presence of Exudate: none Amount: None Color: Purple Odor: None Periwound Skin Appearance: Normal Wound edges: closed Pain (associated with wound): none at time of assessment How does patient state this happened? pt unable to state how this happened Patient has ecchmyotic area noted to left eye and patient states the only time she gets those is when she falls and she doesn't remember falling. During assessment patient asked me mulitple times if I was able to get Cosme off the ceiling but becareful he can hurt you. Surface the patient is resting on: Isoflex SKIN PREVENTION RECOMMENDATION: 1. Pressure redistribution support surface as appropriate 2. Elevate heels 3. Remove boots/TEDS every shift and reapply 4. Head of bed 30 degrees as tolerated 5. Assess nutrition and hydration 6. Manage moisture 7. Avoid the use of containment devices while in bed 8. Use absorptive products on surfaces limit layers of linens on bed 9. Turn and reposition every 1-2 hours in bed and every 1 hour in chair as tolerated 10. Weight shifts every 15 minutes while up in chair 11. Offloading with pillows or device to keep heels elevated off bed 12. Monitor skin at least every shift 13. Inspect under medical devices twice a day WOUND TREATMENT RECOMMENDATIONS: Apply sureprep to left medial aspect of foot proximal and distal allow time to dry then cover with optifoam gentle Partial thickness guidelines: Cleanse left 2nd toe, left top of foot, left outer knee, below left knee with nss and apply sureprep around the wound hydrogel to wound bed and cover with optifoam gentle or bandaid every 2 days and prn for soiling Heel raiser pro boots to bilateral feet while in bed
--- NOTE | 2020-01-31 04:08 | NUR ---
Upon discharge recommend patient to follow up for wound care in outpatient setting continue current wound care orders at discharging facility.
--- NOTE | 2020-01-31 05:59 | NUR ---
PT MEDICATED W/NORCO FOR C/O BACK PAIN 07/21.
[2020-01-31 06:05] LABS: BASO % 0.3 % (0.0-1.0); EOS # 0.2 10*3/uL (0.0-0.4); EOS % 3.3 % (1.0-4.0); HEMATOCRIT 37.3 % (37.0-47.0); LYMPH # 1.8 10*3/uL (1.3-4.4); LYMPH % 25.6 % (27.0-41.0); MEAN PLATELET VOLUME 9.2 fl (9.6-12.3); MONO # 0.8 10*3/uL (0.1-1.0); MONO % 12.1 % (3.0-9.0); NEUT % 58.3 % (47.0-73.0); PLATELET COUNT AUTOMATED 401 10*3/uL (130-400); RED BLOOD COUNT 4.24 10*6/uL (4.10-5.10); WHITE BLOOD COUNT 6.9 10*3/uL (4.8-10.8)
[2020-01-31 06:19] LABS: BUN 9 mg/dl (7-24); CHLORIDE 101 mmol/L (98-107); CREATININE 0.74 mg/dL (0.55-1.02); PHOSPHOROUS 3.5 mg/dL (2.5-4.9); POTASSIUM 3.7 mmol/L (3.5-5.1); SGOT/AST 50 IU/L (3-35); SGPT/ALT 23 U/L (12-78); SODIUM 135 mmol/L (136-145); TOTAL PROTEIN 6.5 gm/dL (6.4-8.2)
[2020-01-31 06:23] LABS: ACT PARTIAL THROMBO TIME 26.8 SECONDS (20.0-32.1)
[2020-01-31 06:26] LABS: ALKALINE PHOSPHATASE 90 U/L (45-117); FREE T4 1.38 ng/dl (0.76-1.46)
[2020-01-31 06:55] LABS: VITAMIN D, 25-HYDROXY 32.9 ng/mL (30-100)
[2020-01-31 08:00] VITALS: BP 100/58
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
--- NOTE | 2020-01-31 08:51 | NUR ---
PHYSICAL THERAPY Nursing screen received and chart reviewed. PT order received. Will follow. Thank you. Chica Barba,PT,DPT
--- NOTE | 2020-01-31 09:00 | NUR ---
Occupational therapy orders received and chart reviewed. Patient has a [facility] consult pending, will address OT evaluation at a later date. Thank you. Gina Nieves, OTR/L
--- NOTE | 2020-01-31 09:30 | NUR ---
IN TO ROOM. PT AWAKE AND ALERT. PT ANSWERS ALL QUESTIONS APPROPRIATELY BUT DOES HAVE INAPPROPRIATE SPEECH. STATES "SHE DIDN'T FALL". PT COMPLAINS OF BACK PAIN RATED AT AN 8. PRN NORCO ADMINISTERED. WILL MONITOR FOR EFFECTIVENESS NO OTHER STATED COMPLAINTS AT THIS TIME. PT ENCOURAGED TO EAT BREAKFAST. OFFERED TO SET UP MEAL BUT PT DECLINED. NO SOB NOTED. RESPIRATIONS ARE EASY AND REGULAR ON ROOM AIR. BED IN LOWEST LOCKED POSITION AND CALL LIGHT WITHIN REACH.
--- NOTE | 2020-01-31 09:34 | NUR ---
Patient was discharged to home from [facility] on 01/20/2020 with [facility]. [facility] never saw the patient because the patient did not answer her Telehealth call. [facility] stated patient is lacking family suppport even though her son is her HPOA (who lives in [place]). He is unable to do anything for this patient because the patient was found to be competent to make her own decisions. Patient is on the active list with adult protective services. Case management notified.
--- NOTE | 2020-01-31 10:13 | NUR ---
PHYSICAL THERAPY PT order received. Defer PT services at this time due to awaiting for U consult. Will address at a later date. Thank you. Chica Barba,PT,DPT
[2020-01-31 12:00] VITALS: BP 100/50
[2020-01-31 16:00] VITALS: BP 117/59
[2020-01-31 20:00] VITALS: BP 102/46
--- NOTE | 2020-01-31 20:36 | NUR ---
PT MEDICATED W/NORCO FOR C/O BACK PAIN 07/21. PT ASSISTED TO BED. BED ALARM ON W/WHEELS LOCKED AND ALARM ON.
--- NOTE | 2020-01-31 22:00 | NUR ---
PT RESTING QUIETLY IN BED. NO S/S OF DISTRESS NOTED. PRN PAIN MED EFFECTIVE.
[2020-02-01] VITALS: BP 114/54
[2020-02-01 08:00] VITALS: BP 112/50
--- NOTE | 2020-02-01 08:05 | NUR ---
IT COMPLIANCE MANAGER spoke with Candelaria Olivera-TED. IT COMPLIANCE MANAGER faxed updates to Candelaria. Patient is into her CoPay days for SNF.
--- NOTE | 2020-02-01 09:00 | NUR ---
Hospital Security Officer in to see patient. Discussed short term rehab and she refuses. She has used all of her SNF days and is not able to afford the co-pays. Discussed home health care services and she is agreeable and would like to resume [facility]. APS is active. When medically stable she will be discharged to home with the resumption of her [facility].
--- NOTE | 2020-02-01 09:48 | NUR ---
PHYSICAL THERAPY Physical Therapy evaluation completed on 4E with full evaluation to follow. Low complexity PT evaluation per chart review and evaluation, [id number]. Recommend physical therapy per plan of care and SNF upon discharge. Thank you for this referral. Chica Barba,PT,DPT
--- NOTE | 2020-02-01 11:20 | NUR ---
TEAMS NOTIFIED OF CONCERNS REGARDING COMPETENCY, PT CONFUSED TO PLACE AND TIME, STATES " WERE IN [facility], BUT THATS IMPOSSIBLE BECAUSE WE'RE NOT IN [place]" PT UNSURE OF YEAR, STATES " O HELL I DONT KNOW" PT ALSO WENT ON A NONSENSICAL RANT REGRADING HER BROTHER BEING THER THIS MORNING WANTING A RIDE, ATTEMPTED TO REOIRENT PATIENT
--- NOTE | 2020-02-01 11:23 | NUR ---
PT FOUND SITTING ON WINDOW SEAL, WITH COMB IN BACK OF HER HAIR, PT REFUSING TO SIT IN THE CHAIR.
--- NOTE | 2020-02-01 11:33 | NUR ---
Received call from son, Jaime, upset about his mother not being able to go to [facility]. He is concerned about her well being at home. He states she see things on her ceilings. She knows one minute what is going on and then the next minute she is completely oblivious. Example she states she just came up from the emergency room to her room and she has been there for 2 days. He states "essentially they are sending my mother home to because she is going to fall and kill herself." He would like to know if the psychiatrist can see her and not the INSURANCE CLAIM APPROVER. Hospitalist nurse director notified. If not then either him or his brother will come to town and have her see a psychiatrist see her outside of the hospital. She does have bed bugs at home.
--- NOTE | 2020-02-01 11:47 | NUR ---
Occupational Therapy evaluation completed on four with full evaluation to follow. Recommend occupational therapy per plan of care and SNF upon discharge. If refused, home with SN, OT, and PT with 04/05 supervision assist. Thank you for this referral. Gina Nieves OTR/L
[2020-02-01 12:00] VITALS: BP 114/56
[2020-02-01] MEDS ORDERED: PHARMASSURE V500 MCG PO (12:39)
[2020-02-01] MEDS ORDERED: RIVASTIGMINE T1.5 M1 PO (12:39)
--- NOTE | 2020-02-01 12:41 | NUR ---
Spoke to media planner / buyer on [facility]. Dr. Mcgee is not coming to the hospital at all and the BRANCH OPERATIONS SPECIALIST is doing the televisits with the iPAD. Message left for Jaime to return call to discuss outpatient psych care options.
--- NOTE | 2020-02-01 12:59 | NUR ---
Received call from palliative care nurse regarding discharge. She is going to stop by and see here shortly after she gets home. Palliative care nurse is reaching out to patient's PCP, Jaime Bazan, who the patient raved about to her. She also states her house is classic dementia cluttering and saving, and she has episodes of paranoia. Karina at [facility] was notified of discharge. [facility] resumption was faxed.
--- NOTE | 2020-02-01 13:05 | NUR ---
SPOKE WITH SON JOSIE, REGARDING DISCHARGE, SON YELLING AND CUSSING THAT WE'RE GOING TO GIVE HIM A HEART ATTACK OVER THIS, ASKED HIM TO STOP YELLING AND CUSSING, HE REFUSED, I HUNG UP,
--- NOTE | 2020-02-01 13:07 | NUR ---
PER PATIENT TO DISCHARGE HOME.
--- NOTE | 2020-02-01 13:12 | NUR ---
RELIGIOUS EDUCATOR faxed RN Notes to Candelaria Montiel and informed her of patients possible discharge today or tomorrow. Will continue to follow.
--- NOTE | 2020-02-01 13:23 | NUR ---
Supervisor Cutting And Boning discussed with patient how she was going to get home. She stated an ambulance was going to take her home. Explained she didn't qualify for an ambulance. She stated she normally gets a $200 bill from the ambulance every time she uses it. Discussed if her brother drove and she stated that he does. Questioned whether he would be able to come and get her. She said he would and that it was okay to reach out to him. Spoke to brother, David, at [phone] regarding she is being discharged to home today. He states he will come and pick her up when she is discharged that he just got home from her house picking up her mail and newspapers. Nurse notified.
--- NOTE | 2020-02-01 13:36 | NUR ---
[facility] Nurse will see patient on Thursday with their psych social worker. Notified patient her brother will pick her up on discharge.
--- NOTE | 2020-02-01 14:29 | NUR ---
Discharge instructions reviewed with patient/family. Patient receptive and verbalizes understanding. Follow-up care arranged. Written instructions given to patient/family. GISELLE LUO
--- NOTE | 2020-02-02 07:23 | NUR ---
Faxed discharge summary and discharge instructions to [facility] and [facility].
== END 2020-02-01 15:11 | disposition home or self-care (01) | DRG 640 ==
LOC: ED 11:09 → EDHOLD 16:27 → 4E 16:27
PROVIDERS: Hospitalist; Nurse Practitioner Family; ADMIT Internal Medicine
DX: E86.0 Dehydration (principal); G93.41 Metabolic encephalopathy; E87.1 Hypo-osmolality and hyponatremia; R53.1 Weakness; R26.2 Difficulty in walking, not elsewhere classified; D47.3 Essential (hemorrhagic) thrombocythemia; F32.9 Major depressive disorder, single episode, unspecified; G30.9 Alzheimer's disease, unspecified; F02.80 Dementia in other diseases classified elsewhere, unspecified severity, without behavioral disturbance, psychotic disturbance, mood disturbance, and anxiety; R80.9 Proteinuria, unspecified; R74.0 Nonspecific elevation of levels of transaminase and lactic acid dehydrogenase [LDH]; E11.65 Type 2 diabetes mellitus with hyperglycemia; I10 Essential (primary) hypertension; E78.2 Mixed hyperlipidemia; Z66 Do not resuscitate; Z51.5 Encounter for palliative care; Z96.1 Presence of intraocular lens; M54.5 Low back pain; G89.29 Other chronic pain; M25.551 Pain in right hip; W01.0XXA Fall on same level from slipping, tripping and stumbling without subsequent striking against object, initial encounter; Y93.89 Activity, other specified; Y92.091 Bathroom in other non-institutional residence as the place of occurrence of the external cause; Y99.8 Other external cause status; Z98.49 Cataract extraction status, unspecified eye; Z79.899 Other long term (current) drug therapy

== ENCOUNTER 2020-02-02 14:27 | Inpatient (IN) | payer OTHER ==
[~2020-02-02] VITALS: Ht 154.9 cm; Wt 74.4 kg
[~2020-02-02 14:27] MED LIST changes: +PHARMASSURE V500 MCG PO; +RIVASTIGMINE T1.5 M1 PO
[2020-02-02 14:49] VITALS: BP 121/46
--- NOTE | 2020-02-02 15:12 | NUR ---
SALES STRATEGY MANAGER spoke with Candelaria Olivera-APS of patients admission to ED. Candelaria went to the patients house this morning at approximately 11:00am. Patients brother answered the door and stated the patient was in the bathroom and hadn't eaten yet. Patients brother did not let the APS worker into the home. APS worker provided patients brother with contact info for her to set time to come back APS never received call. APS worker called and there was no answer voicemail was full. SALES STRATEGY MANAGER will follow.
--- NOTE | 2020-02-02 16:05 | NUR ---
In to see pt and pt states she does not have to void at this time and all siderails up and call richards within reach.
[2020-02-02 16:06] LABS: BASO % 0.3 % (0.0-1.0); EOS # 0.2 10*3/uL (0.0-0.4); EOS % 2.9 % (1.0-4.0); HEMATOCRIT 40.7 % (37.0-47.0); LYMPH # 1.5 10*3/uL (1.3-4.4); LYMPH % 22.8 % (27.0-41.0); MEAN CELL VOLUME 86.4 fl (81.0-99.0); MEAN CORPUSCULAR HGB 29.1 pg (27.0-31.0); MEAN CORPUSCULAR HGB CONC 33.7 g/dl (33.0-37.0); MEAN PLATELET VOLUME 8.7 fl (9.6-12.3); MONO # 0.7 10*3/uL (0.1-1.0); NEUT # 4.2 10*3/uL (2.3-7.9); NEUT % 63.7 % (47.0-73.0); PLATELET COUNT AUTOMATED 456 10*3/uL (130-400); RED BLOOD COUNT 4.71 10*6/uL (4.10-5.10); RED CELL DISTRI WIDTH 12.8 % (0-14.5); WHITE BLOOD COUNT 6.6 10*3/uL (4.8-10.8)
[2020-02-02 16:23] LABS: ALBUMIN 3.5 gm/dl (3.1-4.5); ALKALINE PHOSPHATASE 96 U/L (45-117); BUN 6 mg/dl (7-24); CHLORIDE 102 mmol/L (98-107); CPK 276 U/L (26-192); CREATININE 0.71 mg/dL (0.55-1.02); SGOT/AST 39 IU/L (3-35); SGPT/ALT 28 U/L (12-78); SODIUM 134 mmol/L (136-145); TOTAL PROTEIN 7.8 gm/dL (6.4-8.2)
[2020-02-02 16:27] LABS: CKMB 5.5 ng/ml (0.5-3.6); TROPONIN I < 0.015 ng/ml (<0.045)
[2020-02-02 17:39] LABS: BILIRUBIN NEGATIVE (NEGATIVE); BLOOD NEGATIVE (NEGATIVE); CLARITY SL CLOUDY (CLEAR); COLOR YELLOW (YELLOW); GLUCOSE NEGATIVE (NEGATIVE); KETONE TRACE (NEGATIVE); NITRITE NEGATIVE (NEGATIVE); SPECIFIC GRAVITY 1.005 (1.005-1.030)
[2020-02-02 17:41] LABS: LEUKO ESTERASE TRACE (NEGATIVE)
[2020-02-02 17:46] LABS: BACTERIA 2+; RBC 0-2 rbc/hpf (0-2); WBC 21-30 wbc/hpf (0-5)
--- NOTE | 2020-02-02 20:15 | NUR ---
RAPID COVID TEST NEGATIVE.
--- NOTE | 2020-02-02 22:05 | NUR ---
HERIBERTO SMITH a 74 year old F admitted via wheel chair from the EMERGENCY ROOM as a voluntary admission. Arrived on unit at 2200 ALLERGIES: NKA Vital signs are: [id number] 126/86. The client signed the following forms with stated understanding: Authorization For The Release of Medical Information, Clothing List, Consent to Voluntary Admission and Hospitalization, Consent and Release Forms/Receipt of Rights, Acknowledgement of Advance Directive Information, Behavioral Health Consent Form, and Informed Consent of Medications. Admitted under the services of Dr. ROB PIZANO,TATIANA. A search was conducted and hazardous articles were removed. Client was oriented to the unit. ERASMO OCONNOR
--- NOTE | 2020-02-02 22:10 | NUR ---
PT DENIES FALLING AT HOME. STATED THAT SHE SAT ON THE FLOOR & THE LAST TIME SHE FELL WAS "ABOUT 3-4 MONTHS AGO.
--- NOTE | 2020-02-02 22:15 | NUR ---
DR PRINCE ANGUIANO WAS ON UNIT SEEING ANOTHER PT. HE WAS NOTIFIED OF MEDICAL CONSULT & MED REQ READY FOR REVIEW. SEEN PT AT THIS TIME.
[2020-02-02 23:13] VITALS: BP 126/86
[2020-02-03 00:01] VITALS: BP 126/86
--- NOTE | 2020-02-03 05:22 | NUR ---
TYLENOL EFFECTIVE. PT SLEPT PAST 44
[2020-02-03 06:33] LABS: THYROID STIM HORMONE (HS) 3.77 uIU/ml (0.358-4.75)
[2020-02-03 07:10] LABS: VITAMIN D, 25-HYDROXY 28.4 ng/mL (30-100)
--- NOTE | 2020-02-03 07:13 | NUR ---
EXECUTIVE OFFICER SPECIAL WARFARE TEAM informed Candelaria Fletcher-TED of patient being admitted to [facility]. EXECUTIVE OFFICER SPECIAL WARFARE TEAM faxed ER Notes to Candelaria. Will have Candelaria follow up with BRYAN Watkins in [facility].
[2020-02-03 07:56] VITALS: BP 147/67
--- NOTE | 2020-02-03 08:30 | NUR ---
Treatment Plan meeting was held via telephone with Dr. Mcgee, SIMONA Reis RN,A AT, HOUSEKEEPING CLEANER-S and Dispatch Officer. Plan for discharge next week. Working with family for safe discharge.
--- NOTE | 2020-02-03 08:59 | NUR ---
Nursing screen received and chart reviewed. Patient admitted following a fall while at home. Patient has recently had multiple admissions to [facility] recently. Please send OT orders. Thank you. Gina Nieves, OTR/L
--- NOTE | 2020-02-03 09:19 | NUR ---
Faxed new inpatient mental health admission clinical to [facility]. Awaiting response.
--- NOTE | 2020-02-03 09:34 | NUR ---
Notified [facility] nurse of admission.
--- NOTE | 2020-02-03 11:37 | NUR ---
AM GROUP PT DID NOT ATTEND MORNING GROUP THERAPY. PT WAS IN BED RESTING. WILL ATTEMPT ASSESSMENT LATER THIS AFTERNOON.
--- NOTE | 2020-02-03 13:11 | NUR ---
Family meeting held with pt's son Jaime Bar. Jaime shared about pt's struggles over the last months. He voiced frustration about being unable to intercede for pt and the difficult is watching his mother struggle, as well as fear for her safety. Jaime was tearful as he spoke of this. Empathized with him and provided support. Discussed possible discharge options. Informed Jaime that this writer producer will request a competency evaluation for pt to assist in discharge planning. Jaime voiced understanding. After speaking with Jaime, contacted Dr Marah Tyson and Dr Mcgee to discuss competency eval. Dr Tyson will complete evaluation on 02/06/20.
--- NOTE | 2020-02-03 13:14 | NUR ---
SON, JOSIE, CALLED UNIT TO DISCUSS WITH THIS NURSE PATIENT'S BEHAVIORS AT HOME. JOSIE WAS VERY TEARFUL STATING "MY MOM IS GONE. THE WOMAN I GREW UP KNOWING IS NOT THERE ANYMORE". PT CONTINUES ON TO STATE THAT HERIBERTO LEFT STEAKS BURNING ON THE STOVE AND WALKED OUTSIDE, THE BROTHER HAD TO COME IN TO TURN STOVE OFF AND CLEAR OUT SMOKE. JOSIE ALSO STATES THAT HERIBERTO WILL VIVEK FOOD AND LET IT SPOIL, THEN EAT IT BECAUSE SHE DOES NOT KNOW THAT IT IS ROTTEN. JOSIE STATES SHE HAD FOOD ROTTEN IN THE FRIDGE THAT WAS LEAKING ONTO HER FLOOR. JOSIE STATES THAT PATIENT HAS HAD MULTIPLE FALLS AT HER HOUSE AND SHE HAS RECENTLY BEEN ANGRY WITH HER SONS FOR SETTING UP A BEDROOM IN HER LIVING ROOM SO SHE DOES NOT HAVE TO GO UP THE STEPS BECAUSE TO USE THEM, SHE MUST CRAWL ON HER HANDS AND KNEES TO GET UP THEM. JOSIE STATES THAT HE FEELS HELPLESS IN HER SITUATION BECAUSE SHE MAY SEEM FINE ON THE SURFACE, BUT UNDERNEATH HE STATES THAT SHE IS VERY CONFUSED. HE STATES THAT THE CYCLE OF FALL, HOSPITALIZATION, AND DISCHARGE BACK HOME HAS BEEN DIFFICULT FOR HIS MOTHER AND HIS FAMILY. AMAYA REQUESTED TO SPEAK WITH CONCERT MANAGER REGARDING DISCHARGE PLANNING, TELEPHONE CALL TRANSFERRED AT THIS TIME.
--- NOTE | 2020-02-03 15:34 | NUR ---
PM GROUP PT DID NOT ATTEND AFTERNOON GROUP THERAPY. PT WAS IN BED RESTING.
--- NOTE | 2020-02-03 17:03 | NUR ---
pt has refused all medication this shift. pt states she does not like to take her metformin because "it's nasty". pt states that she used to spit pills in bathroom when nurses in [place] were not looking. education provided, ineffective.
[2020-02-03 19:36] VITALS: BP 138/64
--- NOTE | 2020-02-03 19:40 | NUR ---
24 HR chart check completed.
--- NOTE | 2020-02-03 22:06 | NUR ---
P-CONFUSION, MEMORY DEFICITS I-PROVIDE 1;1 FOR EMOTIONAL SUPPORT, ADMINISTER MEDS, MONITOR SLEEP, ASSIST PT WITH SHOWER R-PT HAS BEEN PLEASANT & JOKING AT STAFF INTERMITTENTLY. ALERT & ORIENTED TO PERSON, PLACE & TIME. SHORT TERM MEMORY DEFICITS MORE NOTICABLE THAN PRINCIPAL GIFTS OFFICER DEFICITS. WAS ASSISTED WITH A SHOWER THIS EVENING. REFUSED SNACK. COMPLIANT WITH HS MEDICATIONS. USES A WHEELCHAIR TO TRANSFER SELF FROM ROOM TO DINING ROOM. ALSO GETS UP INDEPENDENTLY TO TRANSFER SELF OR GO TO THE BATHROOM. HAS SAT IN THE DINING ROOM SOCIALIZING WITH 2 OTHER FEMALE PEERS. P-CONTINUE TO MONITOR & PROVIDE ASSISTANCE WHEN NEEDED.
--- NOTE | 2020-02-03 22:48 | NUR ---
WHILE PT WAS HEADING TO HER ROOM, SHE STATED, "I'M GONNA GO CHANGE MY CLOTHES & MEET MY BROTHER OUT IN THE [place]". NO VERBAL RESPONSE WHEN REDIRECTED.
--- NOTE | 2020-02-04 05:39 | NUR ---
PT SLEPT FROM [id number]. SHE WAS INCONTINENT OF URINE & WAS ASSISTED WITH HYGIENE. RESTED IN BED AWAKE UNTIL RETURNING TO SLEEP @ 0430.
--- NOTE | 2020-02-04 07:45 | NUR ---
Patient resting quietly with no c/o discomfort. Respirations easy and regular. Vital signs stable. No overt distress. ALEXSANDRA HELLER This RN encouraged pt to get up for breakfast, pt declined at this time, rolled over and went back to sleep.
[2020-02-04 07:46] VITALS: BP 136/65
--- NOTE | 2020-02-04 09:38 | NUR ---
AM medications administered as this time, pt still in bed. Pt took all AM meds except Metformin. Pt states "I'm not taking that Metformin, it tastes like hell". Education provided, ineffective. Slow processing noted this AM. Attempted to assist pt in getting up and dressed, pt refused to allow staff to assist her. Education provided on fall risk precautions without positive effect. Pt non compliant with fall risk precautions, pt states "I didn't fall. Don said I fell but it's not true. I was just sitting on the floor by my bed".
--- NOTE | 2020-02-04 10:31 | NUR ---
P- Confusion, underlying irritability, slow processing, refused breakfast, refusing staff assistance to get OOB and dressed, noncompliant with fall risk precautions, selective with medications. I- Orientation, mood and behaviors assessed. Assessed pt for SI/HI, intent or plan. Assessed pt for s/s hallucinations, paranoia and/or delusions. Medications administered as per physician's orders. Assistance with ADL care provided as needed. Encouraged pt to attend and participate in curiel milieu. Encouraged pt to adhere to fall risk precautions, frequent education provided. R- During interview this AM pt was able to correctly state name, place and date, however, pt referred to white board in room during interview to correctly answer these orientation questions, pt appears mildly confused with ST memory gaps. Resps easy and even on room air. Mood noted to have underlying irritability noted. Affect blunted. Speech is coherent, slow processing noted at times. Able to communicate needs effectively. Pt denies feeling sad, depressed or hopeless. Pt denies SI/HI, intent or plan. Pt denies hallucinations, no response to internal stimuli noted. Medication compliant with exception of AM Metformin. Pt declined to get OOB for breakfast, declined to allow this RN to assist her in getting OOB/dressed around 0930, pt stated she would do it on her own yet pt has not gotten up as of this time. Pt is noncompliant with fall risk precuations, refusing to allow staff to assist her despite encouragement and education. Pt states "I didn't fall at home, I don't need help. Don said I fell, but I didn't. I was just sitting on the floor beside my bed". Pt remains resting quietly in bed at this time, no distress noted. P- Plan to continue current treatment, continue to monitor mood and behaviors, provide appropriate reorientation, redirection and 1:1 as needed. Continue to encourage medication compliance as well as group attendance and participation. Continue to encourage and education pt re: adherance to fall risk precautions.
--- NOTE | 2020-02-04 11:52 | NUR ---
This RN attempting to assist pt in getting out of bed and dressed for lunch, observed optifoam in place to pt's left foot dated 01/29/20 and bandaid to left 2nd toe. Pt allowed this RN to take off these bandages and assess these areas. Scabbed areas observed to top of left foot measuring 0.5cm x 0.3cm x <0.1cm and left second toe measuring 0.1cm x 0.4cm x <0.1cm. Both scabbed areas are red in color, surrounding skin intact, no foul odor or drainage noted to either area. Skin to bilateral feet is dry and flaky. Calloused area noted to base of left great toe. Right hallux pink and blanchable. Skin to bilateral heels dry but intact. Pt allowed this RN to photograph these aforementioned areas and apply house lotion. Pt declined any further skin assessment beyond these areas or assistance with ADL care at this time. Pt denies having any other areas of concern on her skin. Nursing supervisor metal cans notified and notified.
--- NOTE | 2020-02-04 12:35 | NUR ---
DR MIRELES UPDATED ON PT'S LOWER EXTREMITIES AND FEET BEING DRY AND FLAKY. REQUESTED LOTION FOR PT.
--- NOTE | 2020-02-04 12:36 | NUR ---
Pt declined to come down for lunch despite multiple attempts by this RN and second RN. Pt states "I'm just not that hungry". Pt got self up and dressed, stripped bed and put dirty linen in corner of the room by the door. Pt is calm and pleasant at this time, engaged in conversation with RN, pt stated that she only came to the hospital because "I just thought it was time. I figured there were some tests they needed to run or something". Pt denies having any difficulty caring for herself at home but states "My boys, they want me to sell my house! I told them hell no! But Elaine, my baby, he is going to take me up to [place] to look at some assisted living homes". Pt states she is open to this idea.
[2020-02-04 19:27] VITALS: BP 116/45
[2020-02-04 19:30] VITALS: BP 116/58
--- NOTE | 2020-02-04 20:23 | NUR ---
24 HR chart check completed.
--- NOTE | 2020-02-04 22:25 | NUR ---
P-CONFUSION, MEMORY DEFICITS, NON-COMPLIANCE WITH FALL PRECAUTIONS, ELOPEMENT PRECAUTIONS I-PROVIDE 1;1 FOR EMOTIONAL SUPPORT, ADMINISTER MEDS, MONITOR SLEEP, INITIATE ELOPEMENT PRECAUTIONS & REDIRECT PT TO COME AWAY FROM EXIT DOOR. GIVE FREQUENT REMINDERS TO HOLD SIDE RAILS IN [place] WHEN AMBULATING R-PT HAS BEEN PLEASANT & JOKING AT STAFF INTERMITTENTLY. ALERT & ORIENTED TO PERSON, PLACE & TIME. SHORT TERM MEMORY DEFICITS MORE NOTICABLE THAN HALF-WAY DEFICITS. 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 PT HAS WENT TO EXIT DOOR A COUPLE OF TIMES & MESSED WITH HANDLE ON DOOR. COMPLIANT WHEN REDIRECTED BUT HAS STATED. "I'M GONNA LEAVE SO I CAN MEET UP WITH MY BROTHER." WHEN REMINDED THAT SHE IS IN THE HOSPITAL & CANNOT LEAVE YET, SHE JUST LOOKED AT STAFF WITH A BLANK STARE & STATED , "NO KIDDING". THEN SMILED & WINKED & RETURNED TO THE DINING ROOM. ATE SNACK. COMPLIANT WITH HS MEDICATIONS. HAS SAT IN THE DINING ROOM SOCIALIZING WITH A FEMALE PEERS. PT HAS BEEN REMINDED SEVERAL TIMES TO HOLD THE HAND RAIL WHEN AMBULATING IN THE [place] & HAS BEEN NON COMPLIANT. HAS NOT USED WHEELCHAIR THIS SHIFT. MEDICATED WITH ROZEREM 8 MG PRN @ 2035 FOR ASSISTANCE WITH SLEEP. P-CONTINUE TO MONITOR & PROVIDE ASSISTANCE WHEN NEEDED.
--- NOTE | 2020-02-05 06:08 | NUR ---
ROZEREM HAS BEEN EFFECTIVE & PT HAS SLEPT QUIETLY PAST 0000
[2020-02-05 07:21] VITALS: BP 129/58
--- NOTE | 2020-02-05 07:33 | NUR ---
Patient resting quietly with no c/o discomfort. Respirations easy and regular. Vital signs stable. No overt distress. ALEXSANDRA HELLER
--- NOTE | 2020-02-05 10:56 | NUR ---
and team on unit to see pt at this time, made aware pt is refusing Metformin.
--- NOTE | 2020-02-05 11:00 | NUR ---
Pt refused AM medications x3 attempts. Pt declined to get out of bed and dressed for breakfast or lunch. Pt sleeping, resps easy and even on room air, easily arousable when called by name and then pt goes back to sleep. No distress noted. q15 min monitoring continues.
[2020-02-05 19:48] VITALS: BP 115/58
--- NOTE | 2020-02-06 02:09 | NUR ---
P: non compliant with medications, intermittent confusions, poor gait I: Explained medications to pt, encouraged compliance, Pt was able to respond to orientation questions appropriately and is aware of current situation R; Pt took medicaiton 1 at a atime as explained each one. No exit seeking this shift, gait was good with 1 assist. P: pt resting quietly at this time. Continue to encourage medicaiton compliance, safety from falls and mobility. No si/hi or delusions noted or reported. Continue to monitor 15 min checks
--- NOTE | 2020-02-06 05:14 | NUR ---
Patient slept approx. 6 hours throughout shift. Q 15 minute safety checks continued and maintained.
--- NOTE | 2020-02-06 06:13 | NUR ---
HERIBERTO SMITH [id number] Please refer to the physician's history and physical for past medical history, comorbid conditions, and allergies. Diagnosis: BRIEF PSYCHOTIC DISORDER Daniel Score: 19,LOW OR NO RISK WOUND DESCRIPTIONS: Wound Number: 1 Location of the wound: top of left foot Thickness: Partial Size: 0.4cm x 0.4cm x 0.1cm Tunneling: none Undermining: none Sinus Tract: none Presence of Exudate: none Amount: None Color: Red Odor: None Periwound Skin Appearance: Normal Wound edges: approximated Pain (associated with wound): none at time of assessment How does patient state this happened? pt unable to state how this how this happened Wound Number: 2 Location of the wound: Left 2nd toe Thickness: Partial Size: 0.3cm x 0.4cm x 0.1cm Tunneling: none Undermining: none Sinus Tract: none Presence of Exudate: none Amount: None Color: Red Odor: None Periwound Skin Appearance: Normal Wound edges: approximated Pain (associated with wound): none at time of assessment How does patient state this happened? pt unsure how this happened Wound Number: 3 Location of the wound: left outer knee Thickness: Scar tissue Tunneling: none Undermining: none Sinus Tract: none Presence of Exudate: none Amount: None Color: pink brown and blanchable at time of assessment Odor: None Periwound Skin Appearance: Normal Wound edges: closed intact scar tissue noted Pain (associated with wound): none at time of assessment How does patient state this happened? pt unable to state how this happened Wound Number: 4 Location of the wound: below left knee Type of wound: Scab Thickness: Partial Size: 0.2cm x 0.1cm x 0.1cm Tunneling: none Undermining: none Sinus Tract: none Presence of Exudate: none Amount: None Color: Red Odor: None Periwound Skin Appearance: Scar Wound edges: approximated Pain (associated with wound): none at time of assesment How does patient state this happened? pt unable to state how this happened Wound Number: 5 Left elbow is red and blanchable at time of assessment. No open areas noted at time of assessment. No drainage noted at time of assessment. Wound Number: 6 Location of the wound: left base of great toe distal Type of wound: callus Size: 2.0cm x 2.5cm x <0.1cm Tunneling: none Undermining: none Sinus Tract: none Presence of Exudate: none Amount: None Color: Woodard Odor: None Periwound Skin Appearance: Normal Wound edges: approximated Pain (associated with wound): none at time of assessment How does patient state this happened? pt unable to state how this happened Wound Number: 7 Location of the wound: left base of great toe proximal Type of wound: DTI Size: 0.3cm x 0.3cm x <0.1cm Tunneling: none Undermining: none Sinus Tract: none Presence of Exudate: none Amount: None Color: Purple Odor: None Periwound Skin Appearance: Normal Wound edges: closed Pain (associated with wound): none at time of assessment How does patient state this happened? pt unable to state how this happened Patient has ecchmyotic area noted to left eye and patient states the only time she gets those is when she falls and she doesn't remember falling. Surface the patient is resting on: Proform SKIN PREVENTION RECOMMENDATION: 1. Pressure redistribution support surface as appropriate 2. Elevate heels 3. Remove boots/TEDS every shift and reapply 4. Head of bed 30 degrees as tolerated 5. Assess nutrition and hydration 6. Manage moisture 7. Avoid the use of containment devices while in bed 8. Use absorptive products on surfaces limit layers of linens on bed 9. Turn and reposition every 1-2 hours in bed and every 1 hour in chair as tolerated 10. Weight shifts every 15 minutes while up in chair 11. Offloading with pillows or device to keep heels elevated off bed 12. Monitor skin at least every shift 13. Inspect under medical devices twice a day WOUND TREATMENT RECOMMENDATIONS: Apply sureprep to left medial aspect of foot proximal and distal allow time to dry then cover with optifoam gentle Partial thickness guidelines: Cleanse left 2nd toe, left top of foot, below left knee with nss and apply sureprep around the wound hydrogel to wound bed and cover with optifoam gentle or bandaid every 2 days and prn for soiling Heel raiser pro boots to bilateral feet while in bed Continue hydraguard to buttocks every shift and prn for soiling for prevention. Continue wheelchair cushion when oob for prevention. Patient states she will follow up with Dr. Astudillo and she will have him get her into the [facility] she stated she walked out of [facility] because they were not taking care of her correctly.
[2020-02-06 06:48] LABS: BASO % 0.5 % (0.0-1.0); EOS # 0.2 10*3/uL (0.0-0.4); HEMATOCRIT 38.2 % (37.0-47.0); LYMPH # 1.5 10*3/uL (1.3-4.4); LYMPH % 34.5 % (27.0-41.0); MEAN CELL VOLUME 88.2 fl (81.0-99.0); MEAN CORPUSCULAR HGB 29.3 pg (27.0-31.0); MEAN CORPUSCULAR HGB CONC 33.2 g/dl (33.0-37.0); MONO # 0.5 10*3/uL (0.1-1.0); MONO % 12.4 % (3.0-9.0); NEUT # 2.1 10*3/uL (2.3-7.9); NEUT % 48.4 % (47.0-73.0); PLATELET COUNT AUTOMATED 374 10*3/uL (130-400); RED BLOOD COUNT 4.33 10*6/uL (4.10-5.10); WHITE BLOOD COUNT 4.3 10*3/uL (4.8-10.8)
--- NOTE | 2020-02-06 06:49 | NUR ---
Pt incontinent of urine this am, appeared as if she sat on the side of the bed as if it were the toilet. The floor had large area covered in urine which was cleaned up by our staff, pt continued to lay in urine soaked bed. Required much encouragement to get up from bed and ambulate to the bathroom. Pt was rambling non-sensical statements at that time. As HOC went on pt started to communicate better and assisted with more care.
[2020-02-06 07:16] VITALS: BP 129/60
[2020-02-06 07:20] LABS: ALBUMIN 2.9 gm/dl (3.1-4.5); ALKALINE PHOSPHATASE 90 U/L (45-117); BUN 4 mg/dl (7-24); CHLORIDE 101 mmol/L (98-107); CREATININE 0.58 mg/dL (0.55-1.02); POTASSIUM 3.7 mmol/L (3.5-5.1); SGOT/AST 24 IU/L (3-35); SGPT/ALT 22 U/L (12-78); SODIUM 135 mmol/L (136-145); TOTAL PROTEIN 6.8 gm/dL (6.4-8.2)
--- NOTE | 2020-02-06 07:33 | NUR ---
Refaxed admission clinical to [facility]. Awaiting return call.
--- NOTE | 2020-02-06 08:30 | NUR ---
Treatment Plan meeting was held via telephone with Dr. Mcgee, SIMONA Reis, RN, AT and Credit Relationship Manager. Plan for discharge Next week. Pt. has a Competency eval planned for Today with Dr. Tyson and will require Possible placement depending on outcome. Pt. Son has expressed Concern about patient ability to care for herself at home. Pt. is unable to perform ADL's independently at this time.
--- NOTE | 2020-02-06 08:30 | NUR ---
Treatment Plan meeting was held via telephone with Dr. Mgcee, SIMONA Reis, RN, AT and Air Conditioning Coil Assembler. Plan for discharge Next week. Competency eval has been ordered and Teachers' Assistant has been working with Pt. Son on Discharge Plans.
--- NOTE | 2020-02-06 09:30 | NUR ---
DR. LIMA ON UNIT TO ASSESS PATIENT. PER DR. LIMA, PATIENT IS INCOMPETENT TO MAKE HEALTH CARE DECISION, REFER TO MEDICAL POA.
--- NOTE | 2020-02-06 10:25 | NUR ---
Nutritional Support Services Note: Scabbed areas noted to foot/toes. Receives a regular diet as ordered. Appetite is fairly good, although breakfast time she eats the least. Recommend Ensure po at breakfast and snack. Will follow as needed. Staff to encourage intake, honor food preferences. Susie Storey Rdn Ld
--- NOTE | 2020-02-06 10:37 | NUR ---
DR. SMITH ON UNIT TO ASSESS PATIENT.
--- NOTE | 2020-02-06 11:09 | NUR ---
Dr. Crain notified of wound care recommendations.
--- NOTE | 2020-02-06 11:44 | NUR ---
AM GROUP PT ATTENDED MORNING GROUP THERAPY BUT DECLINED ANY ACTIVITY OFFERED STATING, "I'M JUST GOING TO SIT HERE AND MIND MY OWN BUSINESS" PT LISTENED TO PEER RANT AND WOULD OCCATIONALLY OFFER SUPPORTIVE WORDS. PT EXHIBITED NO ADVERSE BEHAVIORS WHILE IN GROUP.
--- NOTE | 2020-02-06 12:03 | NUR ---
Faxed continued stay review clinical to [facility]. Awaiting response.
--- NOTE | 2020-02-06 14:14 | NUR ---
PT IS ALERT AND ORIENTED TO PERSON, PLACE, AND APPROXIMATE TO TIME. MOOD IS STABLE, AFFECT IS APPROPRIATE. PT DISPLAYS SOME UNDERLYING IRRITABILITY WITH PREVIOUS STAYS AT [facility]AC[facility]IES STATING THAT "THEY DON'T KNOW ANYTHING ABOUT ME". PT EXPRESSING HER DESIRE TO GO HOME. PT IS MEDICATION COMPLIANT WITH MUCH, MUCH ENCOURAGEMENT. PT DECLINED TO TAKE AM METFORMIN, PT EDUCATED ON MEDICATION AND IMPORTANCE, PT THEN STATES "OK, GIVE ME THE BLESSED THING, I'LL TAKE IT". PT THEN SMILED AND STATES "OH WELL, I'VE GOT TO ARGUE WITH SOMEBODY, RIGHT?". DENIES HALLUCINATIONS. NO OVERT PARANOIA OR DELUSIONS PRESENT. DENIES SI/HI, INTENT OR PLAN. WILL CONTINUE TO MONITOR PT FOR ADVERSE MOODS OR BEHAVIORS. WILL ENCOURAGE CONTINUED MEDICATION COMPLIANCE. WILL CONTINUE TO MONITOR Q15 MIN PER POLICY FOR SAFETY.
--- NOTE | 2020-02-06 14:48 | NUR ---
[facility]07 with a NRD 02/07. Ref # [id number]
--- NOTE | 2020-02-06 15:27 | NUR ---
Shift chart check completed.
--- NOTE | 2020-02-06 15:38 | NUR ---
PM GROUP/MANICURES AND MUSIC PT DID NOT ATTEND AFTERNOON GROUP THERAPY. PT WAS IN BED RESTING.
--- NOTE | 2020-02-06 15:42 | NUR ---
SON, MEDICAL POA CALLED IN CONCERN WITH PATIENT BEING ON METFORMIN. FOX IS AWARE OF PATIENT BEING ON LISINOPRIL AND NEWLY PRESCRIBED MEDICATIONS. DR. PROCTOR NOTIFIED OF CONCERN. METFORMIN PLACED ON HOLD UNITL REVIEWED BY PCP.
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
--- NOTE | 2020-02-06 17:48 | NUR ---
DR. PROCTOR ON UNIT TO ASSESS PATIENT. CONTINUE TO MONITOR.
[2020-02-06 19:32] VITALS: BP 128/57
--- NOTE | 2020-02-06 23:35 | NUR ---
P-CONFUSION I-REDIRECTION WITH 1:1 THERAPEUTIC INTERVENTIONS AND PRESENT REALITY. EDUCATE AND ENCOURAGE MEDICATION COMPLIANCE R-PATIENT WITH NO SUICIDAL OR HOMICIDAL IDEATIONS. PATIENT WITH NO HALLUCINATIONS OR DELUSIONS AT THIS TIME. PATIENT PROVIDED FLUIDS AT HS AND NOURISHMENT AT HS. PATIENT MEDICATION COMPLIANT AT HS. PATIENT AMBULATING ON UNIT WITH UNSTEADY GAIT AND WITH ASSIST X 1. PATIENT INTERACTING IN DINING AREA WITH PEERS. PATIENT OFTEN REDIRECTED DUE TO SHORT TERM MEMORY DEFICITS. P-CONTINUE TO ENCOURAGE MEDICATION COMPLIANCE, CONTINUE TO PRESENT REALTIY, ENCOURAGE GROUP THERAPY WHILE AWAKE
--- NOTE | 2020-02-07 05:55 | NUR ---
PATIENT SLEPT 8 HOURS OF UNINTERRUPTED SLEEP THROUGHOUT SHIFT. Q 15 MINUTE CHECKS MAINTAINED. 24 HR chart check completed.
[2020-02-07 07:44] VITALS: BP 121/52
--- NOTE | 2020-02-07 08:30 | NUR ---
Treatment Plan meeting was held via telephone with Dr. Mcgee, SIMONA Reis, RN, AT, FEATHER MAKER-S and Manager Port. Plan for discharge Next week. Pt. may require Placement.
--- NOTE | 2020-02-07 11:40 | NUR ---
Spoke with pt's son Jaime and discussed that pt was deemed incompetent. Discussed discharge options. Jaime ultimately wants pt placed in [place] near him but realizes that may be impossible at this time due to COVID 19. Jaime would like any NF as close as possible to [place] for pt to discharge to from [facility]. Discussed payer source. Jaime is searching for pt's financial information and has contacted [employer] with which Jaime believes pt has accounts.
--- NOTE | 2020-02-07 11:41 | NUR ---
AM GROUP/MUSIC AND CONNOR PT ATTENDED MORNING GROUP AND PARTICIPATED BY LISTENING TO MUSIC AND SOCIALIZING WITH A FEMALE PEER. PT EXPRESSED NO CONFUSION WHILE IN GROUP.
--- NOTE | 2020-02-07 13:23 | NUR ---
Referral to [facility] Attn:Brenna. [phone].
--- NOTE | 2020-02-07 13:38 | NUR ---
Spoke to Karina Olivera of [facility] and informed her of pt's competency evaluation. Per Karina's request, faxed copy of evaluation to her attention.
--- NOTE | 2020-02-07 14:18 | NUR ---
P- CONFUSION, POOR ST MEMORY RECALL I- ORIENTATION, MOOD AND BEHAVIORS ASSESSED. ASSESSED PT FOR SI/HI, INTENT OR PLAN. ASSESSED PT FOR S/S HALLUCINATIONS, PARANOIA AND/OR DELUSIONS. MEDICATIONS ADMINISTERED PER PHYSICIAN'S ORDERS. ASSISTANCE WITH ADL CARE PROVIDED NEEDED. ENCOURAGED PT TO ATTEND AND PARTICIPATE IN [facility] GROUPS AND ACTIVITIES. R- PT IS ALERT AND ORIENTED TO PERSON, APPROXIMATE PLACE. PT STATES SHE IS IN THE HOSPITAL BUT UNABLE TO STATE WHICH ONE. PT STATES THE DATE IS JANUARY 30, 2028. PT STATES "I ONLY KNOW IT'S JANUARY BECAUSE MY SON'S BIRTHDAY IS THE ". PT ABLE TO CORRECTLY STATE THE PRESIDENT. PERIODS OF CONFUSION AND ST MEMORY GAPS NOTED. RESPS EASY AND EVEN ON ROOM AIR. MOOD IS STABLE, AFFECT IS APPROPRIATE. SPEECH IS WNL AND COHERENT, ABLE TO MAKE NEEDS KNOWN WITHOUT DIFFICULTY. PT DENIES SI/HI, INTENT OR PLAN. PT DENIES HALLUCINATIONS, NO RESPONSE TO INTERNAL STIMULI NOTED. NO PARANOIA OR DELUSIONS NOTED. PT IS MEDICATION COMPLIANT WITHOUT DIFFICULTY. PT CONTINUES TO BE NONCOMPLIANT WITH FALL RISK PRECUATIONS AT TIMES. PT SELF PROPELLED HERSELF IN W/C DOWN TO UNIT DOORS, EASILY REDIRECTED AWAY FROM DOOR. NO AGGRESSION NOTED. NO DISTRESS NOTED. P- PLAN TO CONTINUE CURRENT TREATMENT, CONTINUE TO MONITOR MOOD AND BEHAVIORS, PROVIDE APPROPRIATE REORIENTATION, REDIRECTION AND 1:1 NEEDED. CONTINUE TO ENCOURAGE MEDICATION COMPLIANCE WELL GROUP ATTENDANCE AND PARTICIPATION.
--- NOTE | 2020-02-07 16:05 | NUR ---
Shift chart check completed.
--- NOTE | 2020-02-07 16:14 | NUR ---
Referral faxed to [facility]. Brenna from [facility] Calls and Referral is declined due to "We cannot meet her Needs".
[2020-02-07 20:00] VITALS: BP 138/64
--- NOTE | 2020-02-07 20:52 | NUR ---
24 HR chart check completed.
--- NOTE | 2020-02-07 21:16 | NUR ---
P-CONFUSION, SHORT MEMORY DEFICITS I-PROVIDE 1;1 FOR EMOTIONAL SUPPORT, ADMINISTER MEDS, MONITOR SLEEP R-PT HAS BEEN PLEASANT & MAKES JOKING REMARKS AT STAFF WHEN VERBALLY INTERACTING. ALERT & ORIENTED TO PERSON, PLACE & YEAR, JANUARY 2020. POSITIVE SHORT TERM MEMORY DEFICITS. DENIES FEELING DEPRESSED. DENIES SUICIDAL THOUGHTS BUT DID STATE, "I'VE BEEN WANTING TO SINCE I'VE BEEN 49". THEN LOOKED AT RN WITH A SIDE GRIN & WINKED. WHEN REQUESTIONED, SHE STATED, "WE'RE ALL GONNA SOMEDAY AREN'T WE. SINCE I WAS 49 I REALIZED THAT. WE ALL GET OLD & . I'M NOT KIDDING". NO DELUSIONAL STATEMENTS. HAS SAT IN THE DINING ROOM TALKING TO A MALE PEER SINCE THE ONSET OF THE SHIFT. ATE SNACK. COMPLIANT WITH HS MEDS. HAS USED A WHEELCHAIR TO TRANSFER SELF ON THE UNIT. P-CONTINUE TO MONITOR & PROVIDE ASSISTANCE WHEN NEEDED.
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
--- NOTE | 2020-02-08 05:29 | NUR ---
PT HAS SLEPT PAST 14
[2020-02-08 07:24] VITALS: BP 133/61
--- NOTE | 2020-02-08 08:00 | NUR ---
Patient eating breakfast in dining room with peers. Respirations easy and regular. Vital signs stable. No overt distress. ALEXSANDRA HELLER PHMNP-BC & updated on pt progress.
--- NOTE | 2020-02-08 08:30 | NUR ---
TREATMENT PLAN MEETING WAS HELD VIA TELEPHONE WITH DR. RIVAS, RN, AT, MACHINE CUTTER-S AND INSURANCE OPERATIONS REP. PLAN FOR DISCHARGE NEXT WEEK. PT. SON HAS REQUESTED PLACEMENT AND PT. HAS BEEN DEEMED INCOMPETENT. REQUIRES 24 HOUR CARE AND SUPERVISION. SON IS CURRENTLY WORKING ON FINANCIAL ASPECT. REFERRAL WAS FAXED TO [facility] 02/07/20 AND WAS DENIED DUE TO "UNABLE TO MEET HER NEEDS".
--- NOTE | 2020-02-08 08:30 | NUR ---
Occupational Therapy evaluation completed on four with full evaluation to follow. Recommend occupational therapy per plan of care and SNF upon discharge. Thank you for this referral. Gina Nieves OTR/L
--- NOTE | 2020-02-08 08:45 | NUR ---
Physical Therapy evaluation completed on U with full evaluation to follow. Recommend physical therapy per plan of care would benefit from SNF upon discharge, if to go home pt would require 24 care/assist due to impaired cognition,safety, and decreased functional status. Thank you for this referral. Connie Small PT
--- NOTE | 2020-02-08 09:05 | NUR ---
Spoke with pt's son Jaime and discussed pt's status. Discussed discharge options. Jaime voiced that he would like pt to have Medicare and not and [employer] product. Instructed Jaime on how to accomplish that. Jaime is also planning on meeting with an brand sales manager to assist in further planning for pt.
--- NOTE | 2020-02-08 10:32 | NUR ---
and team on unit to see pt at this time, made aware pt requests doctor speak with her regarding head CT results done last week while admitted on medical floor. reviewed CT with pt.
--- NOTE | 2020-02-08 11:28 | NUR ---
Faxed continued review stay clinical to Aracely at [facility]. Awaiting response.
--- NOTE | 2020-02-08 11:32 | NUR ---
P- CONFUSION, POOR ST MEMORY RECALL I- ORIENTATION, MOOD AND BEHAVIORS ASSESSED. ASSESSED PT FOR SI/HI, INTENT OR PLAN. ASSESSED PT FOR S/S HALLUCINATIONS, PARANOIA AND/OR DELUSIONS. MEDICATIONS ADMINISTERED PER PHYSICIAN'S ORDERS. ASSISTANCE WITH ADL CARE PROVIDED NEEDED. ENCOURAGED PT TO ATTEND AND PARTICIPATE IN [facility] GROUPS AND ACTIVITIES. R- PT IS ALERT AND ORIENTED TO PERSON, APPROXIMATE PLACE AND TIME. PERIODS OF CONFUSION AND ST MEMORY GAPS NOTED. RESPS EASY AND EVEN ON ROOM AIR. MOOD IS STABLE, AFFECT IS APPROPRIATE. SPEECH IS WNL AND COHERENT, ABLE TO MAKE NEEDS KNOWN WITHOUT DIFFICULTY. PT DENIES SI/HI, INTENT OR PLAN. PT DENIES HALLUCINATIONS, NO RESPONSE TO INTERNAL STIMULI NOTED. NO PARANOIA OR DELUSIONS NOTED. PT IS MEDICATION COMPLIANT WITHOUT DIFFICULTY. PT CONTINUES TO BE NONCOMPLIANT WITH FALL RISK PRECUATIONS AT TIMES, DESPITE FREQUENT EDUCATION AND REMINDERS. NO AGGRESSION NOTED. NO DISTRESS NOTED. P- PLAN TO CONTINUE CURRENT TREATMENT, CONTINUE TO MONITOR MOOD AND BEHAVIORS, PROVIDE APPROPRIATE REORIENTATION, REDIRECTION AND 1:1 NEEDED. CONTINUE TO ENCOURAGE MEDICATION COMPLIANCE WELL GROUP ATTENDANCE AND PARTICIPATION.
--- NOTE | 2020-02-08 11:45 | NUR ---
AM GROUP/SOCIALIZATION PT DID NOT ATTEND MORNING GROUP THERAPY. PT WAS SHOWERING.
--- NOTE | 2020-02-08 14:08 | NUR ---
P: INTRUSTIVE OF MALE PATIENT AND IRRITABLE MOOD AT TIMES. I: ONE ON ONE REGARDING PERSONAL SPACE AND REDIRECTION NEEDED. R: EFFECTIVE. PATIENT IS ALERT TO PERSON, PLACE, TIME AND SITUATION, WITH MEMORY GAPS/DEFICITS. MOOD IS IRRITABLE. DENIES ANY HALLUCINATIONS, DELUSIONS, HI/SI OR PAIN. MEDICATION COMPLAINT WITH EDUCATION. Q 15 MINUTE SAFETY CHECKS MAINTAINED. 1 PERSON ASSIST WITH ACTIVITIES OF DAILY LIVING, CONTINENT OF BOWEL AND BLADDER WITH EPISODES OF BLADDER INCONTINENCE. SET UP FOR MEALS, INTAKES ARE GOOD WITH ADEQUATE FLUIDS. P: CONTINUE TO MONITOR MOOD, FOR CONFUSION AND INTRUSIVENESS OF OTHERS PERSONAL SPACE. PROIVDE ONE ON ONE FOR EMOTIONAL SUPPORT AND REDIRECTION NEEDED.
--- NOTE | 2020-02-08 15:19 | NUR ---
Provided updates to Karina Olivera of Adult Protective Services.
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
--- NOTE | 2020-02-08 15:43 | NUR ---
PASRR completed online in [facility]. Pt. requires further review Assessment. Faxed Supporting Documentation to [facility] .
--- NOTE | 2020-02-08 18:25 | NUR ---
SHIFT CHART CHECK COMPLETED.
[2020-02-08 19:36] VITALS: BP 162/70
--- NOTE | 2020-02-08 19:45 | NUR ---
24 HR chart check completed.
--- NOTE | 2020-02-08 21:11 | NUR ---
P-CONFUSION, SHORT MEMORY DEFICITS I-PROVIDE 1;1 FOR EMOTIONAL SUPPORT, ADMINISTER MEDS, MONITOR SLEEP R-PT HAS BEEN MOSTLY PLEASANT BUT DOES HAVE MILD IRRITABLE OVERTONES AT TIMES. ALERT & ORIENTED TO PERSON, PLACE & NAMED THE PRESIDENT, "[place]". STATED SHE DOES NOT KNOW THE MONTH OR THE YEAR NOR DOES SHE "CARE OR GIVE A DAM". POSITIVE FOR SHORT TERM MEMORY DEFICITS & IS SLOW TO PROCESS AT TIMES. DENIES FEELING DEPRESSED. DENIES SUICIDAL THOUGHTS. DID ASK RN WHEN SHE IS BEING DISCHARGED. INFORMED HER TO SPEAK TO THE DR IN THE AM. HAS SAT IN THE DINING ROOM TALKING TO A MALE PEER SINCE THE ONSET OF THE SHIFT. REMINDED PT IT IS OK TO SOCIALIZE BUT TO KEEP DISTANCE AWAY FROM OTHERS & SIT AT TABLE NEXT TO THEM INSTEAD OF ON THE SAME SIDE BY SIDE. PT DID NOT MOVE & WAS INAPPROPRIATE & STATED "WE'VE BEEN TALKING. ITS NOT LIKE WE'RE ON THE FLOOR HUMPING EACH OTHER". INFORMED PT HER COMMENT WAS INAPPROPRIATE & SHE RESPONDED WITH, "IT'S TRUE. WE ARE JUST TALKING". REMAINED SITTING AT THE TABLE WITH BOTH PATIENTS & CHANGED TOPIC OF CONVERSATION. PT WHEELED HERSELF TO [place] & WHEN SHE RETURNED SHE SAT AT TABLE NEXT TO OTHER PT WITH APPROPRIATE DISTANCE. COMPLIANT WITH HS MEDS P-CONTINUE TO MONITOR & PROVIDE ASSISTANCE WHEN NEEDED.
--- NOTE | 2020-02-09 05:01 | NUR ---
PT HAS SLEPT QUIETLY PAST 2300
[2020-02-09 07:45] VITALS: BP 123/64
--- NOTE | 2020-02-09 08:15 | NUR ---
Treatment Plan meeting was held via telephone with Dr. Mcgee, RN, AT, FLOOR COVERING INSTALLER-S and Alodize Machine Helper. Plan for discharge Next Week. Working to have patient placed for SNF at request of Son and Recommendation of Physical Therapy.
--- NOTE | 2020-02-09 09:15 | NUR ---
PHYSICAL THERAPY Patient seen this am for therapy visit and was sitting up in activity room w/c upon therapist arrival. Patient identified by name / and was very pleasant this morning. OT front office assistant was also present for observation only this session as patient transfers sit to stand CGA x 1. Patient ambulates 20'x 1 to bathroom, YOUTH OFFICER/CGA, then additional 40'x 1 [address] rail, CGA with single handrail support, demonstrating "waddling" gait pattern, decreased stride and increased fatigue. Patient returned to the activity room and remained in her w/c with body alarm for safety, under [facility] staff Supervision. Will continue per POC as tolerated, total treatment time 18 minutes. Brendan Hernandez, MODULAR HOME CREW MEMBER
--- NOTE | 2020-02-09 09:27 | NUR ---
Received voicemail from Aracely at [facility] and fax stating patient has been approved 3 additional days. NRD 02/10. Auth # [id number]
--- NOTE | 2020-02-09 09:37 | NUR ---
OT NOTE Prior to coming to the floor spoke with nurse Trujillo and reported that therapy was coming to the floor to treat this pt. Pt was seen this A.M. 1:1 for 18 minute OT session with ASSISTANT HOUSEKEEPING MANAGER and nursing staff present for observation only. Upon arrival pt was sitting upright in the w/c in the dining lockwood. Pt was taken to her bedroom where she completed sit to stand from chair level with CGA followed by functional mobility to the bathroom with CGA CHOCOLATE REFINING ROLLER. There she transferred on/off standard commode with CGA and use of grab bar for UE support. Pt then stood sink side while washing her hands and completing oral care with SBA. Throughout pt required constant verbal prompts for attention to task. Functional mobility was then completed back to the chair with CGA CHOCOLATE REFINING ROLLER. Pt was left sitting upright in the w/c in the dining lockwood under [facility] staff supervision and body alarm activated for safety. Continue with rec D/C plan to SNF. CECE Khalil/Daquan
--- NOTE | 2020-02-09 10:47 | NUR ---
Left Message for Admissions at [facility] at [facility] and Faxed at Referral [phone] Attn: Admissions.
--- NOTE | 2020-02-09 10:49 | NUR ---
Left Message for Admissions at [facility] to inquire of Bed availability and Referral. Pt. Son had requested Facility Close to his home in [facility].
--- NOTE | 2020-02-09 10:50 | NUR ---
DR PARKS AND TEAM ON UNIT TO ASSESS PT, UPDATE PROVIDED.
--- NOTE | 2020-02-09 10:52 | NUR ---
Referral to [facility] Attn: Admissions [phone].
--- NOTE | 2020-02-09 10:56 | NUR ---
Referral to Brenden at [facility] Attn: Admissions [phone].
--- NOTE | 2020-02-09 11:32 | NUR ---
AM GROUP PT ATTENDED MORNING GROUP THERAPY AND PARTICIPATED BY WATCHING THE MOVIE AND SOCIALIZING WITH PEERS. PT EXHIBITED NO ADVERSE BEHAVIORS WHILE IN GROUP.
--- NOTE | 2020-02-09 12:22 | NUR ---
INTERMITTENTLY CONFUSED. ASSESSED FOR ORIENTATION LEVEL, MOOD AND AFFECT. ASSESSED FOR SI/HI, INTENT OR PLAN. MEDICATIONS ADMINISTERED PER ORDERS. ENCOURAGED TO ATTEND GROUP THERAPY. PT IS ALERT, ORIENTED TO PERSON AND PLACE, APPROXIMATE TO TIME AND SITUATION. MOOD IS STABLE, WITH SOME UNDERLYING IRRITABILITY, AFFECT IS APPROPRIATE. PT HAS INTERMITTENT CONFUSION STATING THAT "THE DOCTOR CAME TO MY ROOM AND TOLD ME THAT I WAS GETTING OUT OF HERE TODAY, I NEED MY STUFF". PT EDUCATED ON TREATMENT PLAN AND THAT NO DISCHARGE DATE HAS BEEN SET AT THIS TIME. PT RECEPTIVE TO REDIRECTION. PT DENIES SI/HI, INTENT OR PLAN. MEDICATION COMPLIANT WITHOUT DIFFICULTY. PT ATTENDED GROUP THERAPY. WILL CONTINUE TO REORIENT AND REDIRECT. WILL CONTINUET O ENCOURAGE MEDICATION COMPLIANCE AND PARTICIPATION IN GROUP THERAPY FOR SOCIALIZATION AND SUPPORT. Q15 MIN MONITORING PER MANDEEP FOR SAFETY.
--- NOTE | 2020-02-09 13:13 | NUR ---
Spoke with pt's son Jaime who stated that he will need to return to his home in [place] tomorrow but that his brother Familia will remain in [place] for a few more days. Jaime plans on returning to [place] soon. Discussed discharge plan. Informed him that referrals have been made to various NFs with no answers yet. Jaime stated that he would like [facility] contacted with referral for their dementia unit.
--- NOTE | 2020-02-09 13:23 | NUR ---
PT NOTED TO BE IN DINING AREA WITH PEERS, BEGAN TO YELL THAT "I FEEL DIZZY UP HERE" NOTED TO BE POINTING TO HER HEAD. PT STATES "I JUST NEED TO SIT ON MY ASS OR I WILL FALL. I HAVE DONE IT MANY TIMES BEFORE". PT ASSISTED +2 ASSIST OUT OF W/C AND INTO LARGE BOX CUSHIONED ARM CHAIR, FEET ELEVATED. VS 97.0-80-16 BP 152/65 SPO2 96%RA. PT ALERT, ORIENTED PER HER USUAL. STATES SHE IS "FEELING BETTER". WATCHING MOVIE AT THIS TIME.
--- NOTE | 2020-02-09 15:26 | NUR ---
Referral faxed to Buddy at [facility] Attn: Katt [phone].
--- NOTE | 2020-02-09 15:33 | NUR ---
PM GROUP PT WAS PRESENT FOR AFTERNOON GROUP THERAPY AND PARTICIPATED BY WATCHING TV OR LOOKING OUT THE WINDOW. AT THE END OF GROUP, PT STATED TO THIS PLATEN PRESS OPERATOR, "THE DOCTOR TOLD ME THAT I COULD LEAVE TOMORROW AND NOW THEY'RE TELLING ME THAT I'M NOT. BOY, I TELL YOU, THE NEXT TIME I HAVE TO GO TO THE HOSPITAL, I'M GOING TO THE [facility] IN [place]! I'M NEVER COMING BACK TO THIS [facility]."
[2020-02-09 19:48] VITALS: BP 131/62
--- NOTE | 2020-02-09 20:37 | NUR ---
24 HR chart check completed.
--- NOTE | 2020-02-09 23:23 | NUR ---
P-INTERMITTENT CONFUSION I-PROVIDE 1;1 FOR EMOTIONAL SUPPORT, ADMINISTER MEDS, MONITOR SLEEP R-PT PLEASANT THIS EVENING. ALERT & ORIENTED TO PERSON, PLACE, MONTH, YEAR & & NAMED THE PRESIDENT, "[place]". SHORT TERM MEMORY DEFICITS PRESENT WITH INTERMITTENT CONFUSION. IS SLOW TO PROCESS AT TIMES. RECEIVED A PHONE CALL & TALKED TO BOTH SONS THIS EVENING. HAS SAT IN THE DINING ROOM TALKING TO A MALE PEER APPROPRIATELY. MOVES SELF AROUND VIA WHEELCHAIR. COMPLIANT WITH MEDS. P-CONTINUE TO MONITOR
--- NOTE | 2020-02-10 05:16 | NUR ---
PT HAS SLEPT TOTAL OF 4 HOURS THIS SHIFT
[2020-02-10 07:43] VITALS: BP 130/72
--- NOTE | 2020-02-10 08:15 | NUR ---
Treatmen Plan meeting was held via telephone with Dr. Mcgee, RN, AT, RAT TRAPPER-S and Dischrge Revenue Integrity Analyst. Plan for discharge Early next week. Pt. Son is working to have patient placed closer to home.
--- NOTE | 2020-02-10 08:41 | NUR ---
A&O X4. DENIES SI/HI. DENIES DEPRESSION, ANXIETY, AND SADNESS. PT STATED SHE IS DISGUSTED WITH HER INSURANCE BECAUSE SHE HAS TO PAY A BILL FOR $3,000. PT STATED SHE IS SLEEPING AND EATING OK. MEDICATION COMPLIANT WITH ENCOURAGEMENT. NO HALLUCINATIONS OR DELUSIONS NOTED. ST/LT MEMORY DEFICITS NOTED AT TIMES. THIS NURSE WAS ASSESSING ANOTHER PT THIS PT STARTED ANSWERING THE QUESTIONS SAYING OF COURSE SHE IS DEPRESSED AND ANXIOUS BECAUSE SHE WANTS OUT OF THE HOSPITAL. EXPLAINED TO THE PT THIS NURSE WAS ASSESSING SOMEONE ELSE AND i WOULD COME TALK TO HER ONCE FINISHED WITH THE OTHER PT. SEE [facility] FLOWSHEET FOR SPECIFIC MONITORING.
--- NOTE | 2020-02-10 09:20 | NUR ---
PHYSICAL THERAPY Patient seen this am for therapy visit and was sitting up in activity room w/c upon therapist arrival. Patient identified by name / and reports no new c/o's at this time. OT floor covering printer assistant was present for observation only this morning as patient transfers sit to stand CGA x 1. Patient ambulates PUT IN BEAT ADJUSTER/CGA with single handrail support, 75'x 1, demonstrating very slow, cautious gait pattern, decreased stride and Poor safety awareness as patient needed v/c to improve focus on task. Patient also completed single leg stance ex tolerating approx 2 seconds L side and unable to attempt R side with immediate LOB. Patient returned to her w/c and remained in activity room under [facility] staff Supervision. Will continue per POC as tolerated, total treatment time 17 minutes. Brendan Hernandez, PACK CHANGER
--- NOTE | 2020-02-10 09:35 | NUR ---
OT NOTE Prior to coming to the floor spoke with charge nurse and reported that therapy was coming to treat this pt. Pt was seen this A.M. 1:1 for 15 minute OT session with ENGRAVER RUBBER and nursing staff present for observation only. Upon arrival pt was sitting upright in the w/c in the dining lockwood. Pt was taken out into the hallway where she completed multiple sit to stand transfers from chair level with CGA for safety. Challenged pt's static standing tolerance needed for increased I in self care tasks and functional transfers, pt was able to tolerate aprox 5 minutes at a time before sitting due to fatigue. Then challenged pt's dynamic standing balance while weight shifting, crossing midline, and reaching over all planes and pt was able to maintain F+/G- standing balance throughout. Functional mobility was then completed to her room and back with CGA for safety. Throughout pt required mod verbal prompts for safety awareness and attention to task. Pt was left sitting upright in the w/c in the dining lockwood under [facility] staff supervision. Continue with rec D/C plan to SNF. TYRON Khalil
--- NOTE | 2020-02-10 11:37 | NUR ---
AM GROUP PT ATTENDED MORNING GROUP THERAPY BUT REFUSES ANY ACTIVITY OFFERED. PT IS VERY CONFUSED, BELIEVING THAT HER BROTHER HAS BEEN HERE TO VISIT AND THAT HE IS COMING TODAY, ASKING A PEER TO PUT A CHAIR AT A TABLE FOR HIM WHEN HE COMES. PT ALSO IS UNAWARE OF WHERE SHE IS, STATING, "NEXT TIME I GO TO THE HOSPITAL, IT WILL [place] IN [place], [place]." PT BECOMES SLIGHTLY AGITATED IN BELIEVING THAT SHE IS HERE AGAINST HER WILL.
--- NOTE | 2020-02-10 13:50 | NUR ---
OCCUPATIONAL THERAPY CO-SIGN I approve of the Occupational Therapy notes written above. SOLANGE MCCLAIN, OTR/L
--- NOTE | 2020-02-10 13:53 | NUR ---
Met with pt's son Jaime outside of [facility] ED doors and gave him the original Statement of Expert Evaluation for pt. Discussed status of pt's discharge plan.
--- NOTE | 2020-02-10 15:13 | NUR ---
PHYSICAL THERAPY CO-SIGN I approve of the Physical Therapy notes written above. Connie Small PT
--- NOTE | 2020-02-10 15:15 | NUR ---
PM GROUP PT WAS IN AND OUT OF AFTERNOON GROUP THERAPY. PT CHOOSES NOT TO PARTICIPATE WHEN IN GROUP. PT EXHIBITED NO ADVERSE BEHAVIORS WHILE IN THE DAYROOM.
--- NOTE | 2020-02-10 18:06 | NUR ---
PT REDIRECTED MULTIPLE TIMES TO USE SAFETY PRECAUTIONS AND TO FOLLOW FALL PRECAUTIONS. PT CONTINUALLY DISREGARDS EDUCATION AND PROTOCOL. WILL CONTINUE TO MONITOR BEHAVIORS WITH Q15 MINUTE SAFETY CHECKS AND ENCOURAGE SAFETY PRECAUTIONS.
[2020-02-10 20:00] VITALS: BP 139/65
--- NOTE | 2020-02-11 05:47 | NUR ---
Patient slept approx. 7 hours throughout shift. Q 15 minute safety checks continued and maintained.
--- NOTE | 2020-02-11 07:41 | NUR ---
Patient resting quietly at this time. Respirations easy and regular. Vital signs stable. No overt distress. Telehealth assessment with PATEL Heredia held this AM, updates provided. JUSTIN AVALOS
[2020-02-11 07:50] VITALS: BP 143/83
--- NOTE | 2020-02-11 08:30 | NUR ---
DR RESTREPO ON UNIT TO ASSESS PT, UPDATE PROVIDED.
--- NOTE | 2020-02-11 11:32 | NUR ---
AM GROUP PT PRESENT DURING AM GROUP, DID NOT PARTICIPATE IN EXERCISES OR PAINTING, PT DID CONVERSE WITH STAFF MEMBERS.
[2020-02-11 20:00] VITALS: BP 120/62
--- NOTE | 2020-02-11 23:40 | NUR ---
P-CONFUSION I-REDIRECTION WITH 1:1 THERAPEUTIC INTERVENTIONS AND PRESENT REALITY. EDUCATE AND ENCOURAGE MEDICATION COMPLIANCE R-PATIENT WITH NO SUICIDAL OR HOMICIDAL IDEATIONS. PATIENT WITH NO HALLUCINATIONS OR DELUSIONS AT THIS TIME. PATIENT PROVIDED FLUIDS AT HS AND NOURISHMENT AT HS. PATIENT MEDICATION COMPLIANT AT HS. PATIENT AMBULATING ON UNIT WITH UNSTEADY GAIT AND WITH ASSIST X 1 WHEN NOT IN WHEELCHAIR. PATIENT INTERACTING IN DINING AREA WITH PEERS. P-CONTINUE TO ENCOURAGE MEDICATION COMPLIANCE, CONTINUE TO PRESENT REALTIY, ENCOURAGE GROUP THERAPY WHILE AWAKE
--- NOTE | 2020-02-12 05:58 | NUR ---
PATIENT SLEPT 8 HOURS OF UNINTERRUPTED SLEEP THROUGHOUT SHIFT. Q 15 MINUTE CHECKS MAINTAINED. 24 HR chart check completed.
--- NOTE | 2020-02-12 07:29 | NUR ---
Patient eating breakfast in dining room with peers. Respirations easy and regular. Vital signs stable. No overt distress. ALEXSANDRA HELLER PHMNP-BC updated on pt progress.
[2020-02-12 07:32] VITALS: BP 138/61
--- NOTE | 2020-02-12 08:50 | NUR ---
and team on unit to see pt at this time.
--- NOTE | 2020-02-12 12:22 | NUR ---
PT A&O X4 WITH INTERMITTENT CONFUSION. SHORT TERM MEMORY DEFICITS NOTED AT TIMES. NO HALLUCINATIONS OR DELUSION NOTED. DENIES SI/HI. CALM THIS SHIT. INTERACTIVE WITH PEERS AND STAFF. WHEN PT WAS TALKING TO THIS NURSE REGARDING HER YOUNGER BROTHER, PT STARTED TO BECOME TEARFUL. PT SPEAKING TO THIS NURSE REGARDING HER FAMILY AND TIME AT [facility]. AMBULATORY WITH AN UNSTEADY GAIT AT TIMES. PT DID COMPLY WITH USING THE WHEELCHAIR IN THE COMMONS AREA; HOWEVER, PT DID NOT COMPLY WITH SAFETY MEASURES IN HER ROOM. DURING 15 MINUTE SAFETY CHECKS, PT WAS STANDING NEXT TO THE DOOR WITH THE WHEELCHAIR PARKED AGAINST THE WALL. ATTEMPTED TO EDUCATE PT ON SAFETY AND PT WAS NOT INTERESTED STATING "I KNOW I DO EVERYTHING ON MY OWN. I DON'T WANT TO GET DIZZY AND FALL EITHER BUT IT HAPPENS AND WHEN IT DOES HAPPEN I GO FACE FIRST IN THE GROUND." AGAIN REITERATED FALL PROTOCOL TO THE PT. WILL CONTINUE TO MONITOR BEHAVIORS WITH Q15 MINUTE SAFETY CHECKS. MEDICATION COMPLIANT WITHOUT DIFFICULTY. SEE [facility] FLOWSHEET FOR SPECIFIC MONITORING.
--- NOTE | 2020-02-12 13:18 | NUR ---
ENCOURAGED PT TO SHOWER THIS AFTERNOON, PT DECLINED, STATED "I'LL DO IT TOMORROW".
--- NOTE | 2020-02-12 16:02 | NUR ---
SHIFT CHART CHECK COMPLETED.
[2020-02-12 20:00] VITALS: BP 134/69
--- NOTE | 2020-02-12 23:51 | NUR ---
PATIENT ALERT AND ORIENTED WITH PERIODS OF CONFUSION. PATIENT WITH SHORT TERM AND MANAGER SECURITY MEMORY DEFICITS. PATIENT PROVIDED WITH REDIRECTION WITH 1:1 THERAPEUTIC INTERVENTIONS AND PRESENTED REALITY. PATIENT PROVIDED MEDICATION EDUCATION. PATIENT MEDICATION COMPLIANT. PATIENT WITH NO SUICIDAL OR HOMICIDAL IDEATIONS. PATIENT WITH NO HALLUCINATIONS OR DELUSIONS AT THIS TIME. PATIENT PROVIDED FLUIDS AT HS AND NOURISHMENT AT HS. PATIENT MEDICATION COMPLIANT AT HS. PATIENT ATTEMPTING TO AMBULATE IN DINING ROOM UNIT WITH UNSTEADY GAIT AND NOT COMPLIANT WITH FALL PRECAUTIONS. PATIENT INTERACTING IN DINING AREA WITH PEERS. PATIENT WITH INCONTINENT EPISODES AT TIMES THROUGHOUT SHIFT. SEE [facility] FLOW SHEET FOR SPECIFIC MONITORING
--- NOTE | 2020-02-13 05:15 | NUR ---
HERIBERTO SMITH [id number] Please refer to the physician's history and physical for past medical history, comorbid conditions, and allergies. Diagnosis: BRIEF PSYCHOTIC DISORDER Daniel Score: 19,LOW OR NO RISK WOUND DESCRIPTIONS: This nurse along with Blake GARY went into evaluate patient for skin impairments and patient refused at this time. Patient is incontinent of urine at time of assessment and is refusing assistance to get cleaned up. Pt states "she will change when she gets up" Surface the patient is resting on: Proform SKIN PREVENTION RECOMMENDATION: 1. Pressure redistribution support surface as appropriate 2. Elevate heels 3. Remove boots/TEDS every shift and reapply 4. Head of bed 30 degrees as tolerated 5. Assess nutrition and hydration 6. Manage moisture 7. Avoid the use of containment devices while in bed 8. Use absorptive products on surfaces limit layers of linens on bed 9. Turn and reposition every 1-2 hours in bed and every 1 hour in chair as tolerated 10. Weight shifts every 15 minutes while up in chair 11. Offloading with pillows or device to keep heels elevated off bed 12. Monitor skin at least every shift 13. Inspect under medical devices twice a day WOUND TREATMENT RECOMMENDATIONS: Podiatry is on consult at time of assessment. Continue hyrdraguard to buttocks for prevention. Continue dressing change to left medial aspect of foot proximal, left medial aspect of foot distal, left 2nd toe, left top of foot, below left knee. Continue heel raiser pro boots. Conting wheelchair cushion when oob.
--- NOTE | 2020-02-13 05:54 | NUR ---
PATIENT SLEPT 5 HOURS OF INTERRUPTED SLEEP THROUGHOUT SHIFT. Q 15 MINUTE CHECKS MAINTAINED. 24 HR chart check completed.
[2020-02-13 07:26] VITALS: BP 118/62
--- NOTE | 2020-02-13 07:27 | NUR ---
Patient eating breakfast in dining room with peers. Respirations easy and regular. Vital signs stable. No overt distress. ALEXSANDRA HELLER PHMNP-BC updated on pt progress.
--- NOTE | 2020-02-13 09:06 | NUR ---
DR. GUILLEN ON UNIT TO ASSESS PATIENT.
--- NOTE | 2020-02-13 09:25 | NUR ---
PHYSICAL THERAPY Patient seen this am for therapy visit and was sitting up in activity room w/c upon therapist arrival. Patient identified by name / and was very pleasant / talkative this morning. OT secretary administrative assistant was also present for observation only this session as patient reports no new c/o's at this time. Patient transfers sit to stand SBA and ambulates WORKFORCE DEVELOPMENT VICE PRESIDENT/CGA, 20'x 1 to bathroom, then additional 70' x 1, WORKFORCE DEVELOPMENT VICE PRESIDENT/CGA, in hallway, demonstrating "waddling" gait pattern, decreased stride and mild fatigue. Patient returned to her w/c in activity room and remained under [facility] staff Supervision. Will continue per POC as tolerated, total treatment time 17 minutes. Brendan Hernandez, MANAGER PERFORMANCE IMPROVEMENT
--- NOTE | 2020-02-13 09:50 | NUR ---
OT NOTE Prior to coming to the floor spoke with charge nurse Gracy and reported that therapy was coming to the floor to treat this pt. Pt was seen this A.M. 1:1 for 20 minute OT session with COCOA ROASTER and nursing staff present for observation only. Upon arrival pt was sitting upright in the w/c in the dining lockwood. Pt identified by name and and had no complaints at this time. Pt was taken to her room where she completed sit to stand from chair level with CGA for safety, Functional mobility was then completed to the bathroom with CGA due to bouts of unsteady stance, poor safety awareness, and poor attention to task. There pt transferred on to the standard commode with CGA, while doffing her pants pt had mild LOB forward that required Karlee to correct. While sitting on the commode completing toilet hygiene pt required CGA due to poor safety and sitting on the edge increasing risk of falls. Pt then stood sink side while washing her hands with CGA for safety. Throughout entire session pt required constant verbal prompts for attention to task. Pt was left sitting upright in the w/c in the dining lockwood under [facility] staff supervision. Continue with rec D/C plan to SNF. CECE Khalil/Daquan
--- NOTE | 2020-02-13 11:56 | NUR ---
Treatment team meeting held this AM via the telephone with Smiley Panda POT LINER, and this MANAGER CATH LAB-S. Plan for discharge is [facility] placement. Referrals have been made to numerous NFs. Await responses.
--- NOTE | 2020-02-13 12:23 | NUR ---
Spoke with pt's son Jaime and provided update. Discussed discharge options further. [facility] remains an option and would be Jaime's preference. Discussed means of transportation should pt be accepted to [facility]. Jaime could transport. This screen writer recommended that Jaime also have another person riding in the car during pt transport.
--- NOTE | 2020-02-13 13:03 | NUR ---
Spoke with Katt, admissions at [facility], who states that she has not yet contacted pt's insurance. Pt admission continues to be in process. Pt has not yet been accepted.
--- NOTE | 2020-02-13 15:30 | NUR ---
FAXED CONTINUED REVIEW TO ROSEANN AT [facility].
--- NOTE | 2020-02-13 18:22 | NUR ---
P- Intermittent confusion, LT/ST memory gaps, underlying irritability noted at times. Refusing shower, noncompliant with fall risk precautions. I- Orientation, mood and behaviors assessed. Assessed pt for SI/HI, intent or plan. Assessed pt for s/s hallucinations, paranoia and/or delusions. Medications administered as per physician's orders. Assistance with ADL care provided as needed. Encouraged pt to attend and participate in curiel milieu groups and activities. R- Pt is alert and oriented to person only, otherwise confused. ST/LT memory gaps noted. Resps easy and even on room air. Mood irritable at times. Affect broad range. Speech is WNL & coherent, able to make needs known without difficulty. Pt denies SI/HI, intent or plan. Pt denies hallucinations, no response to internal stimuli noted. No paranoia or delusions noted. Pt is medication compliant without difficulty. Pt frequently refers to being "at [facility] [place]" as if she is somewhere else. Reorientation provided, advised pt she currently is admitted to [facility]. Pt packing up clothes stating she is leaving today. Pt became irritable when her step son called to talk to her and states "I told him to call me up at the house later when I get home". Advised pt she has not been discharged and won't be going home today, pt becomes slightly irritable when reoriented/redirected. No physical aggression. No distress noted. Interacts appropriately with female peer. Staff has encouraged pt to shower this date multiple times, pt refuses each time. Pt also noncompliant with fall risk precautions depsite frequent education and reminders. P- Plan to continue current tx, continue to monitor mood and behaviors, provide appropriate reorientation, redirection and 1:1 as needed. Continue to encourage medication compliance as well as group attendance and participation.
[2020-02-13 20:00] VITALS: BP 136/53
--- NOTE | 2020-02-13 22:48 | NUR ---
PATIENT ALERT AND ORIENTED WITH PERIODS OF CONFUSION. PATIENT WITH SHORT TERM AND MATERIAL YARD CLERK MEMORY DEFICITS. PATIENT PROVIDED WITH REDIRECTION WITH 1:1 THERAPEUTIC INTERVENTIONS AND PRESENTED REALITY. PATIENT IRRITABLE AT TIMES WITH REDIRECTION. PATIENT PROVIDED MEDICATION EDUCATION. PATIENT MEDICATION COMPLIANT. PATIENT WITH NO SUICIDAL OR HOMICIDAL IDEATIONS. PATIENT WITH NO HALLUCINATIONS OR DELUSIONS AT THIS TIME. PATIENT PROVIDED FLUIDS AT HS AND NOURISHMENT AT HS. PATIENT MEDICATION COMPLIANT AT HS. PATIENT ATTEMPTING TO AMBULATE IN DINING ROOM UNIT WITH UNSTEADY GAIT AND NOT COMPLIANT WITH FALL PRECAUTIONS. PATIENT INTERACTING IN DINING AREA WITH PEER. PATIENT WITH INCONTINENT EPISODES AT TIMES THROUGHOUT SHIFT. SEE [facility] FLOW SHEET FOR SPECIFIC MONITORING
--- NOTE | 2020-02-14 03:08 | NUR ---
Upon discharge recommend patient to follow up for wound care in outpatient setting continue current wound care orders at discharging facility.
--- NOTE | 2020-02-14 06:25 | NUR ---
Patient slept approx. 8 hours throughout shift. Q 15 minute safety checks continued and maintained.
[2020-02-14 07:29] VITALS: BP 146/68
--- NOTE | 2020-02-14 07:59 | NUR ---
PATIENT COMPLAINING OF LOWER BACK PAIN RATING 10/10. PRN TYLENOL 650MG PO GIVEN AT THIS TIME.
--- NOTE | 2020-02-14 08:40 | NUR ---
PHYSICAL THERAPY Patient seen this am for therapy visit and was sitting in activity room w/c upon therapist arrival. Patient identified by name / and voices no new c/o's at this time. [facility] staff member present during LOGGER DRIVING HORSES treatment this session as patient peformed seated B LE therex, all planes, x 15 reps each to increase LE strength. Patient transfers sit to stand CGA and ambulates BUS SYSTEM OPERATOR/CGA in hallway, 75'x 1, demonstrating slow, cautious gait pattern, decreased stride. Patient also completed eyes open / closed without LOB and returned to her w/c in activity room following treatment. Patient remained under [facility] staff Supervision and will continue per POC as tolerated. Total treatment time 23 minutes. Brendan Hernandez, VAMSHI
--- NOTE | 2020-02-14 09:00 | NUR ---
NO FURTHER COMPLAINTS OF BACK PAIN. PRN TYLENOL EFFECTIVE.
--- NOTE | 2020-02-14 09:11 | NUR ---
DR GUILLEN AND TEAM ON UNIT TO ASSESS PT, UPDATE PROVIDED.
[2020-02-14] MEDS ORDERED: RIVASTIGMINE TAR6 M1 PO (09:33)
[2020-02-14] MEDS ORDERED: MIRTAZAPINE15 M2 PO (09:33)
[2020-02-14] MEDS ORDERED: VITAMIN D3125 MC1 PO (09:33)
[2020-02-14] MEDS ORDERED: MEMANTINE HCL10 MG PO (09:33)
--- NOTE | 2020-02-14 09:59 | NUR ---
Treatment team meeting held this AM via phone with Smiley Panda CORN BREEDER, RN, and this ASSISTANT WOMENS VOLLEYBALL COACH-S. Pt to discharge to SNF. Await decisions from SNF referrals.
--- NOTE | 2020-02-14 10:56 | NUR ---
AM GROUP CROSSWORD PUZZLES AND COLORING PT REFUSED TO PARTICIPATE IN GROUP, CHOOSING TO SIT AND WATCH STAFF AT THIS TIME.
--- NOTE | 2020-02-14 14:00 | NUR ---
OT NOTE Prior to coming to the floor spoke with charge nurse and reported that therapy was coming to the floor to treat this pt. Pt was seen this P.M. 1:1 for 15 minute OT session with nursing staff present for observation only. Upon arrival pt was sitting upright in the recliner. Pt identified by name and and had no complaints at this time. Pt completed sit to stand from chair level with SBA. Functional mobility was then completed to her bedroom and back with CGA NEWS REPORTER. Challenged pt's dynamic standing balance while weight shifting, crossing midline, and reaching over all planes. Pt was able to maintain G- standing balance throughout. Pt was left sitting upright in the w.c in the dining lockwood under [facility] staff supervision. Continue with rec d/ Cplan to SNF. CECE Khalil/Daquan
--- NOTE | 2020-02-14 14:35 | NUR ---
PATIENT IN DINING ROOM, YELLED OUT, HEAD ON TABLE AND KNOCKED OVER DRINKS SITTING AT TABLE. LASTED 30 SECONDS, PATIENT AROUSED AND ASKED WHAT HAPPENED. PATIENT STATED SHE FELT IN COMING AND FEELING LIGHT HEADED. VITALS: 97.7, BP 127/56, 87, 18, 96% RA/ NEURO'S BILATERAL AND GRASP STRONG, BILATERAL EYES REACTIVE TO LIGHT, ABLE TO VOICE ALL EXTREMITY AND ALERT X 3. DR. PROCTOR NOTIFIED.
--- NOTE | 2020-02-14 14:40 | NUR ---
DR. PROCTOR ON UNIT TO ASSESS PATIENT.
--- NOTE | 2020-02-14 15:08 | NUR ---
Pt was pleasant this afternoon during interaction with this staff writer. Pt spoke about sitting at home and "doing nothing all of the time." When direct questions were asked, pt provided general, brief responses. Pt also used humor for her answers.
--- NOTE | 2020-02-14 15:13 | NUR ---
Spoke with pt's son Jaime who stated that Katt is to contact him today to discuss pt discharging to [facility]. This sign writer letterer or painter also left a message for Katt requesting a return call to learn of status of pt referral.
--- NOTE | 2020-02-14 17:23 | NUR ---
P: INTERMITTANT CONFUSION WITH MEMORY GAPS. UNDERLYING IRRITABILITY. I: ONE ON ONE AND REDIRECTION R: PATIENT IS ALERT TO PERSON, PLACE AND TIME WITH INTERMITTANT CONFUSION. MEMORY GAPS NOTED. MOOD IS IRRITABLE AT TIMES. DENIES ANY HALLUCINATIONS, DELUSIONS, HI/SI, COMPLAINTS OF LOWER BACK PAIN, MEDICATION WITH TYLENOL AND EFFECTIVE. INTERACTIVE WITH NURSING STAFF, DID NOT PARTICIPATE IN GROUP SESSION; CONTINUE TO WATCH NURSING STAFF. MEDICATIONC OMPLAINT, Q 15 MINUTE SAFETY CHECKS MAINTAINED. 1 PERSON ASSIST WITH ACTIVITIES OF DAILY LIVING, CONTINENT OF BOWEL, INCONTINENT OF BLADDER. SET UP FOR MEALS, INTAKES ARE GOOD WITH ADEQUATE FLUIDS. NON COMPLAINT WITH FALL PRECAUTIONS. PARTICIPATED WITH THERAPY TODAY. P: CONTINUE TO MONITOR FOR INCREASED CONFUSION; PROVIDE ONE ON ONE, REDIRECTION AND ORIENTATION NEEDED.
[2020-02-14 20:00] VITALS: BP 136/55
--- NOTE | 2020-02-14 21:30 | NUR ---
P-CONFUSED, DEPRESSED MOOD. I-ASSESS ORIENTATION, MOOD, AND BEHAVIOR. PRESENT REALITY AND REORIENT. PROVIDE 1:1 WITH THERAPEUTIC INTERVENTIONS. PROVIDE SUPPORT. ENCOURAGE MEDICATION COMPLIANCE AND EDUCATE. MONITOR SLEEP. R-PT ALERT AND ORIENTED X3 WITH CONFUSION PER PATIENTS BASELINE. PT WITH UNDERLYING IRRITABILITY DURING INTERACTIONS, APPROACHED STAFF ON MULTIPLE OCCASIONS STATING THAT SOMEONE TOOK HER THINGS (PURSE,KEYS,SHOES,JACKET) DESPITE REALITY PRESENTATION. PT ALSO PREOCCUPIED WITH OTHER PEERS AND REQUIRES FREQUENT REDIRECTION ON BOUNDARIES. PT WITH DEPRESSED MOOD STATING THAT SHE FEELS DOWN IN THE DUMPS BECAUSE SHE FEELS CONFINED AND WANTS TO GO HOME TO MAKE FOOD FOR HER FATHER. SUPPORT PROVIDED. PT DENIES SI/HI, HALLUCINATIONS, OR PAIN. MEDICATION COMPLIANT WITHOUT DIFFICULTY, UNABLE TO EDUCATE DUE TO COGNITION. PT MOBILIZES SELF AROUND UNIT IN A WHEELCHAIR, INDEPENDENT IN ADL'S, CONTINENT/INCONTINENT OF BOWEL AND BLADDER. PT CURRENTLY SITTING IN DINING ROOM WATCHING TV, NO DISTRESS NOTED. P-CONTINUE TO MONITOR MOOD AND BEHAVIORS. MAINTAIN Q 15 MIN CHECKS AND PRN FOR SAFETY.
--- NOTE | 2020-02-15 04:27 | NUR ---
24 HOUR CHART CHECK COMPLETED.
[2020-02-15 07:26] VITALS: BP 128/54
--- NOTE | 2020-02-15 07:50 | NUR ---
OT NOTE Prior to coming to the floor spoke with nurse Trujillo and reported that therapy was coming to the floor to treat this pt. Pt was seen this A.M. 1:1 for 30 minute OT session with nursing staff present for observation only. Upon arrival pt was supine in bed. Pt identified by name and and had complaints of "12/10" low back pain stating "it is nothing new, it comes and goes my whole life." Pt transferred supine to sit EOB with SBA. While sitting EOB pt donned shirt with SBA after set up. Sit to stand completed from bed level with CGA for safety followed by functional mobility to the bathroom with CGA DIRECTOR OF PHARMACY. There she transferred on to standard commode with SBA and use of grab bar. Pt donned depends and pants with SBA while seated. Toilet hygiene completed with distant supervision. Functional mobility was then completed to the sink with CGA DIRECTOR OF PHARMACY where she stood while washing her hands and completing hair/oral care with SBA. Functional mobility was then completed back the w/c with CGA DIRECTOR OF PHARMACY. Throughout entire session pt required constant verbal prompts for attention to task. Pt was left sitting upright in the w/c in the dining lockwood under [facility] staff supervision. Continue with rec D/C plan to SNF. CECE Khalil/Daquan
--- NOTE | 2020-02-15 08:10 | NUR ---
Patient in dining room eating breakfast. Respirations easy and regular. Vital signs stable. No overt distress. PATEL Mace assessed patient via telehealth. Updates provided. JUSTIN AVALOS
--- NOTE | 2020-02-15 08:13 | NUR ---
OCCUPATIONAL THERAPY CO-SIGN I approve of the Occupational Therapy notes written above. SOLANGE MCCLAIN, OTR/L
--- NOTE | 2020-02-15 09:12 | NUR ---
Left a voicemail message for Katt at [facility] informing her that pt is ready for discharge and requesting a return call to learn of status of referral.
--- NOTE | 2020-02-15 09:12 | NUR ---
Treatment Plan meeting was held via telephone with Dr. Mcgee, SIMONA Reis RN, SOAKER-S and Aesthetician. Plan for discharge at the end of the week.
--- NOTE | 2020-02-15 09:42 | NUR ---
Received a return call from Katt of [facility]. Pt has been accepted there. Katt stated that she submitted a request for insurance authorization.
--- NOTE | 2020-02-15 11:13 | NUR ---
Pt pleasant with this health technical writer this AM but with noted confusion. Pt stated that she needed to get home to make dinner for her father. When asked how old her father is, pt paused and then stated, "He'd have to be 74 or 90 or so. I'm a daddy's girl. Always have been."
--- NOTE | 2020-02-15 11:30 | NUR ---
DR SMITH ON UNIT TO ASSESS PT, UPDATE PROVIDED.
--- NOTE | 2020-02-15 11:35 | NUR ---
AM GROUP Patient participated in group this AM by watching a movie and socializing with peers. Patient pleasant, talkative, and cooperative t/o group.
--- NOTE | 2020-02-15 13:15 | NUR ---
PHYSICAL THERAPY Patient seen this pm for therapy visit and was sitting up in activity room w/c watching TV upon therapist arrival. Patient identified by name / and reports chronic low back pain 02/18. [facility] staff member was present at nurses station as patient transported to hallway via w/c and performed sit to stand transfer at rail, SBA x 1. Patient ambulated in hallway, SLAT BASKET MAKER HELPER MACHINE/[facility], with single handrail support, 100'x 1, demonstrating slow, antalgic gait pattern and decreased stride. Patient was very pleasant throughout treatment and returned to her w/c in activity room at table. Will continue per POC as tolerated, total treatment time 14 minutes. Brendan Hernandez, TANGIBLE PERSONAL PROPERTY APPRAISER
--- NOTE | 2020-02-15 13:26 | NUR ---
Spoke with pt's son Jaime. Confirmed that pt will be discharging to [facility]. Jaime is aware that insurance auth is pending. He stated that he would appreciate as much notice as possible of pt's discharge since he is 4 1/2 hours away.
--- NOTE | 2020-02-15 13:42 | NUR ---
NO ADVERSE MOOD OR BEHAVIORS NOTED AT THIS TIME. PT ALERT TO PERSON ONLY, CONFUSION AND SHORT TERM MEMORY DEFICITS NOTED PER PT BASELINE, STAFF PROVIDED RE-ORIENTATION AND PRESENTATION OF REALITY. PT MED COMPLIANT WITHOUT DIFFICULTY, MED EDUCATION PROVIDED. PT CALM, MOOD IS STABLE. PT TEARFUL AT TIMES AND WHEN ASKED WHAT IS WRONG PT STATED "I JUST WANT TO GET OUT OF HERE SO I CAN MAKE DINNER FOR MY DAD", STAFF ATTEMPTED TO PRESENT REALITY WITHOUT SUCCESS. PT DENIES ANY SUICIDAL/HOMICIDAL THOUGHTS. NO HALLUCINATIONS NOTED. PT UP TO A WHEELCHAIR. PT CONTINENT OF BOWEL AND BLADDER, EPISODES OF INCONTINENCE NOTED, CARE PROVIDED NEEDED. PLAN IS TO MONITOR PT BEHAVIORS ON Q15 MIN SAFETY CHECKS, PROVIDE EMOTIONAL SUPPORT AND 1:1 FOR PT TO VOICE FEELINGS, ENCOURAGE GROUP PARTICIPATION AND SOCIALIZATION.
--- NOTE | 2020-02-15 14:45 | NUR ---
PM GROUP Patient participated in group this afternoon by listening to education about medications. Patient pleasant and cooperative t/o group, able to repeat back uses of medications.
[2020-02-15 19:39] VITALS: BP 129/55
--- NOTE | 2020-02-15 21:00 | NUR ---
P-INTERMITTENT CONFUSION, UNDERLYING IRRITABILITY, NON COMP WITH FALL PRECAUTIONS I-PROVIDE 1;1 FOR EMOTIONAL SUPPORT, ADMINISTER MEDS, MONITOR SLEEP R-PT PLEASANT WHEN SOCIALIZING WITH A MALE PEER IN THE DINING ROOM. IRRITABLE WITH RN DURING 1:1, STATED SHE IS SICK & TIRED OF BEING HERE." ALERT & ORIENTED TO PERSON, PLACE & STATED "I DONT GIVE A DAM ABOUT THE MONTH & YEAR & THE PRESIDENT IS AN ASSHOLE". SHORT TERM MEMORY DEFICITS PRESENT WITH INTERMITTENT CONFUSION. STATED THAT SHE WAS "SAVING 2 CUPS OF COFFEE WHEN HER BROTHER COMES TO VISIT HER TONIGHT. HE MIGHT WANT A CUP". MOVES SELF AROUND VIA WHEELCHAIR & HAS BEEN NON COMPLIANT WITH FALL PRECAUTIONS & GETTING UP A FEW TIMES WHILE IN THE DINING ROOM & WALKING. IRRITABLE WHEN REDIRECTED COMPLIANT WITH MEDS. P-CONTINUE TO MONITOR
--- NOTE | 2020-02-15 22:28 | NUR ---
PT HAD TO BE REDIRECTED X 4 WITHIN APPX 15 MIN TIME FRAME SHE SAT THEN STOOD OUTSIDE A MALE PATIENTS ROOM TALKING TO HIM WHILE HE WAS IN HIS ROOM TRYING TO SLEEP. BECAME IRRITABLE WHEN REDIRECTED.
--- NOTE | 2020-02-16 01:52 | NUR ---
PT AWAKE AT THIS TIME & WAS INCONTINENT OF URINE ALL OVER HER FLOOR & ALL OVER THE BATHROOM.
--- NOTE | 2020-02-16 05:22 | NUR ---
PT HAS REMAINED AWAKE & SAT IN A WHEELCHAIR IN THE QUIET ROOM WITH INTERMITTENT NAPPING. HAS SLEPT APPX 3-4 HOURS TOTAL
[2020-02-16 07:20] VITALS: BP 138/52
--- NOTE | 2020-02-16 08:01 | NUR ---
Patient resting quietly with no c/o discomfort. Respirations easy and regular. Vital signs stable. No overt distress. JUSTIN AAVLOS
--- NOTE | 2020-02-16 09:30 | NUR ---
PHYSICAL THERAPY Patient seen this am for therapy visit and was sitting in her room w/c upon therapist arrival. Patient identified by name / and was pleasant this morning, voicing 8/10 low back pain. OT medical assistant prn was also present for observation only this session as patient transfers sit to stand SBA x 1. Patient ambulates 75'x 1, CORRECTIONAL FACILITY PSYCHIATRIST/CGA, demonstrating slow, steady hammad and no LOB. Patient is easily distracted by conversation and requires a v/c every now / again to remain focused on task. Patient also able to side step at rail, including high step marching gait, 15'x 2 each without c/o. Patient returned to her w/c and remained in activity room near TV, under [facility] staff Supervision. Will continue per POC as tolerated, total treatment time 16 minutes. Brendan Hernandez, NATURAL RESOURCES INSTRUCTOR
--- NOTE | 2020-02-16 09:50 | NUR ---
OT NOTE Prior to session spoke with nurse who reported that it was okay to treat this pt. Pt was seen this A.M. 1:1 for 20 minute OT session with POLE SETTER and nursing staff present for observation only. Upon arrival pt was sitting upright on the EOB. Pt identified by name and and had complaints of "12/10" low back pain which pt reported "it comes and goes all the time, this is nothing new." While sitting EOB pt donned B socks with supervision. Sit to stand completed from bed level with SBA. Challenged pt's dynamic standing balance while reaching into her dresser from all heights, pt was able to maintain G- standing balance. Functional mobility completed to the dining lockwood with CGA AUTOMOTIVE FLEET SUPERVISOR. Challenged pt's standing tolerance needed for increased I in self care tasks and functional transfers, pt was able to tolerate aprox 10 minutes at a time before sitting due to fatigue. Throughout entire session pt required constant verbal prompts for attention to task. Pt was left sitting upright in the w/c in the dining lockwood under [facility] staff supervision. COntinue with rec D/C plan to SNF. CECE Khalil/Daquan
--- NOTE | 2020-02-16 10:55 | NUR ---
DR SMITH AND TEAM ON UNIT TO ASSESS PT, UPDATE PROVIDED.
--- NOTE | 2020-02-16 11:30 | NUR ---
AM GROUP Patient participated in AM group by having a snack, watching a movie and socializing with peers. Patient discussed interests and dislikes, peer support received to promote hopeful thoughts.
--- NOTE | 2020-02-16 14:18 | NUR ---
PM GROUP PT REFUSED TO PARTICIPATE IN GROUP STATING "THERE IS NOTHING I LIKE TO DO." WILL CONTINUE TO ENCOURAGE GROUP PARTICIPATION AND SOCIALIZATION.
--- NOTE | 2020-02-16 14:35 | NUR ---
Faxed additional progress notes, vitals, and PT/OT notes to Katt [facility]ustin [facility] per request of pt's insurance. Continue to wait for insurance authorization.
[2020-02-16 20:00] VITALS: BP 136/52
--- NOTE | 2020-02-16 20:35 | NUR ---
P-INTERMITTENT CONFUSION I-PROVIDE 1;1 FOR EMOTIONAL SUPPORT, ADMINISTER MEDS, MONITOR SLEEP R-PLEASANTLY CONFUSED. ALERT & ORIENTED TO PERSON, SOMEWHAT PLACE, MONTH & YEAR. SHORT TERM MEMORY DEFICITS PRESENT WITH INTERMITTENT CONFUSION. STATED, "I'VE BEEN BETTER & I'VE BEEN WORSE. I JUST WANT TO GO HOME & COOK MY DADDY DINNER". PTS FATHER IS . MOVES SELF AROUND VIA WHEELCHAIR & HAS BEEN COMPLIANT WITH FALL PRECAUTIONS. COMPLIANT WITH MEDS EXCEPT REFUSED ZOSTRIX CREAM BECAUSE "IT HUSSEIN TOO MUCH." REQUESTED & MEDICATED WITH TYLENOL 650 MG @ 2023 FOR LOWER BACK PAIN. RATED 10/10. STATED SHE HAD A BM TODAY. P-CONTINUE TO MONITOR
--- NOTE | 2020-02-16 21:59 | NUR ---
24 HR chart check completed.
--- NOTE | 2020-02-17 05:58 | NUR ---
PT SLEPT PAST MIDNIGHT WITH 1 BRIEF AWAKENING TO GO TO THE BATHROOM.
--- NOTE | 2020-02-17 07:45 | NUR ---
PHYSICAL THERAPY Per discussion with U nurse, patient is resting in bed with c/o of 10/10 low back pain and per nurse requested to hold therapy this am. Will continue per POC at a later time as able. Brendan Hernandez, TIMBER HEWER
--- NOTE | 2020-02-17 07:50 | NUR ---
OT NOTE Attempted to see pt this A.M. for OT session and per nurse Elvira pt is on hold at this time due to back pain and refusing to get out of bed at this time. Will check back at a later time/date and continue with POC as able. CECE Khalil/Daquan
[2020-02-17 08:00] VITALS: BP 133/54
--- NOTE | 2020-02-17 08:00 | NUR ---
Patient resting quietly in bed, c/o low back pain. Declined PRN Tylenol at this time. Pt states "Nothing I can do for it. I have spinal stenosis. This happened when I was shoveling snow out in the driveway. It gets bad for a couple weeks then goes away. I know the doctor is just gonna tell me I need surgery". RN assisting pt in getting OOB and dressed for the day. Will update hospitalist team regarding pt c/o pain.
--- NOTE | 2020-02-17 08:15 | NUR ---
Treatment Plan meeting was held via telephone with Dr. Mcgee, SIMONA Reis, RN, LEAD SHIPPER-S and Barrel Liner. Plan for discharge once Precert is obtained for SNF. Pt. is accepted at [facility].
--- NOTE | 2020-02-17 10:33 | NUR ---
and team on unit to see pt at this time, made aware pt c/o low back pain, states Tylenol is ineffective and does not like the Zostrix cream due to "it magallanes too much".
--- NOTE | 2020-02-17 11:46 | NUR ---
RECEIVED A CALL FROM ROSEANN FROM [facility] IP APPROVED THROUGH TODAY 02/16. WILL CONTINUE TO FOLLOW.
--- NOTE | 2020-02-17 12:05 | NUR ---
Spoke with Elaine, pt's son, who stated that he received word from Katt at [facility] that pt's insurance approved pt's admittance. While this song writer was on the phone with Elaine, naval surface fire support planner Ana Maria Reese phoned Katt and confirmed this. Pt will discharge tomorrow with Elaine providing transportation at 10:00.
--- NOTE | 2020-02-17 12:22 | NUR ---
Shift chart check completed.
--- NOTE | 2020-02-17 14:36 | NUR ---
Clinical Updates faxed to [facility] Attn: Katt [phone].
--- NOTE | 2020-02-17 15:19 | NUR ---
Met with pt and explained the discharge plan to her. Pt accepted the news of moving closer to her son Elaine. She became tearful when she spoke of being able to see him more often. Explained to pt that she will be at a facility for PT/OT. Pt also enjoyed reminiscing of when her son Elaine was a child.
--- NOTE | 2020-02-17 15:23 | NUR ---
PHYSICAL THERAPY CO-SIGN I approve of the Physical Therapy notes written above. Connie Small PT
--- NOTE | 2020-02-17 15:31 | NUR ---
OCCUPATIONAL THERAPY CO-SIGN I approve of the Occupational Therapy notes written above. SOLANGE MCCLAIN, OTR/L
--- NOTE | 2020-02-17 15:44 | NUR ---
CALLED ROSEANN FROM [facility] AND LEFT HER MESSAGE THAT WE HAVE OBTAINED AUTH FOR PT TO GO TO FACILITY AND SHE WILL BE DISCHARGING TOMORROW WITH SON.
--- NOTE | 2020-02-17 18:14 | NUR ---
No adverse moods or behaviors this shift. Pt is alert and oriented to person, month and year. Approximate to place. Pt states she is in the hospital but frequently forgets which hospital. ST memory gaps noted. Resps easy and even on room air. 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 Mood is stable throughout the majority of the shift, affect is broad range and appropriate. Pt appropriately tearful at times when talking about missing her brothers and father who have passed and sons who she doesn't get to see often. Pt denies SI/HI, intent or plan. Pt denies hallucinations, no response to internal stimuli noted. No paranoia or delusions noted. Pt is medication compliant without difficulty. No distress noted. No aggressive behaviors or elopement attempts. Displays good appetite with adequate fluid intake. Interacts appropriately with staff and peers. Plan to continue current tx, continue q15 min monitoring.
--- NOTE | 2020-02-17 18:15 | NUR ---
P- CONFUSED, TEARFUL, LOWER BACK PAIN I-ASSESS MOOD, ORIENTATION, SI/HI, INTENT OR PLAN, HALLUCINATIONS, DELSUIONS, OR PAIN. 1:1 THERAPEUTIC INTERACTION WITH EMOTIONAL SUPPORT AND VENTILATION OF FEELINGS PROVIDED. ALLOWED PT TO EXPRESS FEELINGS WITH EMPATHY PROVIDED. PROVIDE COPING TECHNIQUES SUCH DEEP BREATHING. PROVIDE MEDICATIONS ON TIME WITH EDUCATION ON EACH. OFFER PRESCRIBED PRN'S BY PHYSICIAN FOR PAIN. REORIENTATION, REDIRECTION, AND REASSURANCE PROVIDED OFTEN. R- ALERT TO PERSON. UNAWARE OF PLACE OR TIME; PT THOUGHT SHE NEEDED TO FIND HER SHOES TO GO OUTSIDE. REORIENTATION AND REDIRECTION EFFECTIVE. PT BECOMES CONFUSED EASILY AND QUICKLY EVEN AFTER REORIENTATION PROVIDED. PT BECOMES TEARFUL WHEN SHE IS TALKING ABOUT HER FAMILY; 1:1 INTERACTION, EMPATHY, AND REASSURANCE ALL EFFECTIVE. PT STATED THAT SHE IS THANKFUL TO HAVE US HERE TO LISTEN TO HER. PT STATED THIS MORNING THAT SHE WAS HAVING VERY BAD BACK PAIN RATING 10/10; PT REFUSED ALL PHARMALOGICAL AND NONPHARMALOGICAL INTERVENTIONS. PT HAS NO COMPLAINTS OF BACK PAIN AT THIS TIME. MEDICATION COMPLIANT WITH NO DIFFICULTIES. INTERACTIVE, PLEASANT AND PARTICIPATING. PT UTILIZING WHEELCHAIR DUE TO UNSTEADY GAIT AT TIMES. MAKES NEEDS KNOWN. DENIES SI/HI WITH INTENT OR PLAN, HALLUCINATIONS. NO S/S OF INTERACTING WITH INTERNAL STIMULI; NO DELUSIONAL THOUGHT PROCESS NOTED. NO S/S OF DISTRESS NOTED. RESPS EVEN AND UNLABORED ON ROOM AIR. PT IS EATING AND DRINKING ADEQUATELY. P- ASSESS MOOD, ORIENTATION, SI/HI, HALLUCINATIONS, DELUSIONS OR PAIN EVERY SHIFT. REORIENT, REASSURE AND REDIRECT NEEDED. 1:1 THERAPEUTIC INTERVENTIONS AND COPING TECHNQIUES PROVIDED NEEDED. OFFER NONPHARMALOGICAL AND PRESCRIBED PHARMALOGICAL INTERVENTIONS IF PT EXPRESSES ANY FURTHER COMPLAINT OF PAIN. FALLING STAR PROGRAM AND Q15 MINUTE SAFETY CHECKS MAINTAIN IN EFFECT FOR SAFETY.
[2020-02-17 20:00] VITALS: BP 122/64
--- NOTE | 2020-02-17 21:05 | NUR ---
24 HR chart check completed.
--- NOTE | 2020-02-17 21:11 | NUR ---
P-INTERMITTENT CONFUSION I-PROVIDE 1;1 FOR EMOTIONAL SUPPORT, ADMINISTER MEDS, MONITOR SLEEP R-PLEASANTLY CONFUSED. ALERT & ORIENTED TO PERSON, SOMEWHAT PLACE, MONTH & YEAR. SHORT TERM MEMORY DEFICITS PRESENT WITH INTERMITTENT CONFUSION. STATED, "MY SON IS PICKING ME UP TOMORROW AT MY HOUSE & TAKING ME TO [place] TO LOOK FOR AN APARTMENT. ONCE I GET MOVED IN THEN I CAN COOK MY DADDY DINNER". MOVES SELF AROUND VIA WHEELCHAIR & HAS BEEN COMPLIANT WITH FALL PRECAUTIONS. COMPLIANT WITH MEDS. CONTINUES TO REFUSE ZOSTRIX CREAM BECAUSE "IT HUSSEIN TOO MUCH." HAS TAKEN HERSELF TO HER ROOM VIA WHEELCHAIR & BEEN CONTINENT WITH TOILETING. P-CONTINUE TO MONITOR
--- NOTE | 2020-02-18 05:19 | NUR ---
PT HAS SLEPT QUIETLY PAST 2200
[2020-02-18 07:45] VITALS: BP 121/60
[2020-02-18] MEDS ORDERED: ARTHRITIS PAIN57 GM T (08:06)
[2020-02-18] MEDS ORDERED: RIVASTIGMINE TAR6 M1 PO (08:06)
--- NOTE | 2020-02-18 08:06 | NUR ---
CALL PLACED TO DR SMITH'S PHONE. DR HOWARD ANSWERED. UPDATED ON PT DISCHARGE AT 0930.
== END 2020-02-18 10:07 | disposition home or self-care (01) | DRG 885 ==
LOC: ED 14:27 → 3N 20:31
PROVIDERS: Nurse Practitioner Family; Registered Nurse; ADMIT Psychiatry & Neurology Psychiatry
PROC: 0HBRXZZ Excision of Toe Nail, External Approach (ICD-10-PCS; principal; 2020-02-08)
PROC: 0HBNXZZ Excision of Left Foot Skin, External Approach (ICD-10-PCS; principal; 2020-02-08)
PROC: 0HBMXZZ Excision of Right Foot Skin, External Approach (ICD-10-PCS; principal; 2020-02-08)
DX: F33.2 Major depressive disorder, recurrent severe without psychotic features (principal); F23 Brief psychotic disorder; E87.1 Hypo-osmolality and hyponatremia; D47.3 Essential (hemorrhagic) thrombocythemia; F41.9 Anxiety disorder, unspecified; G30.9 Alzheimer's disease, unspecified; F02.80 Dementia in other diseases classified elsewhere, unspecified severity, without behavioral disturbance, psychotic disturbance, mood disturbance, and anxiety; G89.29 Other chronic pain; M54.9 Dorsalgia, unspecified; I10 Essential (primary) hypertension; E78.5 Hyperlipidemia, unspecified; E55.9 Vitamin D deficiency, unspecified; R29.6 Repeated falls; E11.65 Type 2 diabetes mellitus with hyperglycemia; R82.71 Bacteriuria; B35.1 Tinea unguium; L85.9 Epidermal thickening, unspecified; Z98.49 Cataract extraction status, unspecified eye; Z96.1 Presence of intraocular lens; Z79.899 Other long term (current) drug therapy; Z79.84 Long term (current) use of oral hypoglycemic drugs